=== PATIENT | male | born 1935 | race American Indian/Alaskan Native ===

== ENCOUNTER 2022-01-07 16:49 | Inpatient (IN) | payer MEDICARE, OTHER ==
--- NOTE | 2022-01-07 18:31 | Emergency Department Report ---
HPI - General Chief Complaint: Altered Mental Status Time Seen by Provider: 01/07/22 17:39 - HPI HPI: Room 1 The patient is an 86-year-old male present with chief complaint of altered mental status. Per staff the patient had received his full-time on hemodialysis and was waiting for transportation to go home when the patient became lethargic and inattentive. EMS was called and the patient was transported to the ED. Patient has a previous CVA with left-sided weakness and has garbled speech which is the patient's baseline per staff [facility] Past Medical Hx - Past Medical History Hx Hypertension: Yes Hx Renal Disease: Yes Hx HIV: Yes - Family History Family history: no significant - Social History Smoking Status: Former Smoker - Medications Home Medications: Home Medications Medication Instructions Recorded Confirmed Last Taken Type Alendronate Sodium 70 mg PO QWEEK 08/03/15 10/14/16 2 Days Ago History ~10/12/16 Amlodipine Besylate 10 mg PO QDAY 08/03/15 10/14/16 2 Days Ago History ~10/12/16 Apixaban [Eliquis] 2.5 mg PO BID 08/03/15 10/14/16 2 Days Ago History ~10/12/16 Aspirin EC [Aspirin Enteric Coated 81 mg PO QDAY 08/03/15 10/14/16 2 Days Ago History TAB] ~10/12/16 Bimatoprost [Lumigan 0.01%] 1 drop OU QDAY 08/03/15 10/14/16 2 Days Ago History ~10/12/16 Dutasteride [Avodart] 0.5 mg PO QDAY 08/03/15 10/14/16 2 Days Ago History ~10/12/16 Febuxostat (Nf) [Uloric (Nf)] 40 mg PO QDAY 08/03/15 10/14/16 2 Days Ago History ~10/12/16 Hydrochlorothiazide [HCTZ] 50 mg PO QDAY 08/03/15 10/14/16 2 Days Ago History ~10/12/16 Metoprolol [Lopressor] 50 mg PO BID 08/03/15 10/14/16 2 Days Ago History ~10/12/16 Multivitamin Tab [Multiple Vitamin 1 tab PO QDAY 08/03/15 10/14/16 2 Days Ago History TAB (Theragran)] ~10/12/16 Nitroglycerin [Nitrostat] 0.4 mg SL Q5M PRN 08/03/15 10/14/16 1 Week Ago History ~07/27/15 Psyllium Seed (with Sugar) 1 each PO QDAY 08/03/15 10/14/16 2 Days Ago History [Metamucil] ~10/12/16 Simvastatin 20 mg PO QDAY 08/03/15 10/14/16 2 Days Ago History ~10/12/16 Tamsulosin HCl 0.4 mg PO QPM 08/03/15 10/14/16 2 Days Ago History ~10/12/16 Cholecalciferol Vit D3 [Vitamin D3] 1,000 unit PO BID 08/20/15 10/14/16 2 Days Ago History ~10/12/16 ED Review of Systems ROS: Stated complaint: AMS Other details as noted in HPI Comment: Unobtainable due to pts medical conditions Physical Exam - Physical Exam Vital Signs: Vital Signs 01/07/22 16:49 Temperature 98.1 F Pulse Rate 97 H Respiratory 16 Rate Blood Pressure 100/60 [Left] O2 Sat by Pulse 97 Oximetry Physical Exam: GENERAL: The patient is well-developed well-nourished male lying on stretcher in itially slow to respond but eventually makes eye contact and answers questions. [] HEENT: Normocephalic. Atraumatic. Extraocular motions are intact. Patient has moist mucous membranes. NECK: Supple. Trachea midline CHEST/LUNGS: Clear to auscultation. There is no respiratory distress noted. HEART/CARDIOVASCULAR: Regular. There is no tachycardia. There is no gallop rub or murmur. ABDOMEN: Abdomen is soft, nontender. Patient has normal bowel sounds. There is no abdominal distention. SKIN: There is no rash. There is no edema. There is no diaphoresis. NEURO: The patient is initially asleep but awakens to verbal and tactile stimuli, makes eye contact and attempts to answer questions. The patient is cooperative. The patient has left-sided weakness from previous CVA. The patient has nearly unintelligible speech (patient's baseline per dialysis staff) MUSCULOSKELETAL: There is no evidence of acute injury. ED Course Vital Signs 01/07/22 16:49 Temperature 98.1 F Pulse Rate 97 H Respiratory 16 Rate Blood Pressure 100/60 [Left] O2 Sat by Pulse 97 Oximetry ED Medical Decision Making - Lab Data Result diagrams: 01/07/22 18:30 01/07/22 18:30 - Radiology Data Radiology results: report reviewed (Chest x-ray, CT head), image reviewed (Chest x-ray, CT head) interpreted by me: Chest [id number] lung haziness. No pneumothorax. [address] [address] XRay Report Signed Patient: ANTHONY SYKES MR#: [id number] : 1935 Acct:[id number] Age/Sex: 86 / M ADM Date: 01/07/22 Loc: ED Attending Dr: Ordering Physician: SUSHANT HAMLIN MD Date of Service: 01/07/22 Procedure(s): XR chest 1V ap Accession Number(s): [id number] cc: SUSHANT HAMLIN MD Fluoro Time In Minutes: CHEST 1 VIEW 01/07/2022 5:42 PM INDICATION / CLINICAL INFORMATION: Altered mental status. COMPARISON: None available. FINDINGS: SUPPORT DEVICES: Right Vas-Cath tip overlies distal SVC HEART / MEDIASTINUM: No significant abnormality. LUNGS / PLEURA: Diffuse opacities in bilateral lungs left greater than right with bilateral effusions No pneumothorax. Signer Name: Feliciano Powers MD Signed: 01/07/2022 6:44 PM Workstation Name: [id number] Transcribed By: CW Dictated By: JOE POWERS MD Electronically Authenticated By: JOE POWERS MD Signed Date/Time: 01/07/221843 DD/ [address] [address] Cat Scan Report Signed Patient: ANTHONY SYKES MR#: [id number] : 1935 Acct:[id number] Age/Sex: 86 / M ADM Date: 01/07/22 Loc: ED Attending Dr: Ordering Physician: SUSHANT HAMLIN MD Date of Service: 01/07/22 Procedure(s): CT head/brain wo con Accession Number(s): [id number] cc: SUSHANT HAMLIN MD CT BRAIN: 01/07/2022 INDICATION / CLINICAL INFORMATION: Altered mental status. 86-year-old COMPARISON: None available. FINDINGS: BRAIN/INTRACRANIAL STRUCTURES: Unenhanced CT images of the brain were obtained. There is no evidence of acute abnormality. Extensive ischemic encephalomalacia is present in the right middle cerebral artery territory distribution, consistent with remote ischemic injury. Some cortical gyriform dystrophic calcification is noted. The infarct is associated with Wallerian degeneration of the right cortical spinal tract. Underlying diffuse cerebral atrophy is present. There is no evidence of acute large vessel territory ischemic injury, hemorrhage, or mass. There are no abnormal extra-axial fluid collections. EXTRACRANIAL STRUCTURES: Unremarkable. IMPRESSION: No acute abnormality. Extensive chronic ischemic and age-related changes. All CT scans at this location are performed using dose reduction to ALARA by means of automated exposure control. Signer Name: Quentin Mckenzie MD Signed: 01/07/2022 8:19 PM Workstation Name: [id number] Transcribed By: AO Dictated By: Quentin Mckenzie MD Electronically Authenticated By: Quentin Mckenzie MD Signed Date/Time: 01/07/222018 DD/ 16 TD/TT: Critical care attestation.: If time is entered above; I have spent that time in minutes in the direct care of this critically ill patient, excluding procedure time. ED Disposition Clinical Impression: Altered mental status, Pleural effusion, Suspected 2019 novel coronavirus infection Disposition: ADMITTED INPATIENT Is pt being admited?: Yes Does the pt Need Aspirin: No Condition: Fair Time of Disposition: 20:37 (Care transferred to hospitalist Dr. Erazo (discussed with Dr. Syed))
--- NOTE | 2022-01-07 18:49 | XRay Report ---
CHEST 1 VIEW 01/07/2022 5:42 PM INDICATION / CLINICAL INFORMATION: Altered mental status. COMPARISON: None available. FINDINGS: SUPPORT DEVICES: Right Vas-Cath tip overlies distal SVC HEART / MEDIASTINUM: No significant abnormality. LUNGS / PLEURA: Diffuse opacities in bilateral lungs left greater than right with bilateral effusions No pneumothorax. Signer Name: Feliciano Powers MD Signed: 01/07/2022 6:44 PM Workstation Name: [id number]
[2022-01-07 19:28] LABS: Hematocrit 36.5 % (35.5-45.6); Hemoglobin 11.9 gm/dl (11.8-15.2); Mean Corpuscular HGB Conc 33 % (32-34); Mean Corpuscular Volume 91 fl (84-94); Red Blood Count 4.02 M/mm3 (3.65-5.03); Red Cell Distribution Width 19.1 % (13.2-15.2)
[2022-01-07 19:33] LABS: Platelet Count 78 K/mm3 (140-440)
[2022-01-07 20:00] LABS: Calcium 8.5 mg/dL (8.4-10.2); Creatine Kinase MB 2.1 ng/mL (0.0-4.0)
[2022-01-07 20:10] LABS: Free T4 (Free Thyroxine) 0.28 ng/dL (0.76-1.46)
--- NOTE | 2022-01-07 20:23 | Cat Scan Report ---
CT BRAIN: 01/07/2022 INDICATION / CLINICAL INFORMATION: Altered mental status. 86-year-old COMPARISON: None available. FINDINGS: BRAIN/INTRACRANIAL STRUCTURES: Unenhanced CT images of the brain were obtained. There is no evidence of acute abnormality. Extensive ischemic encephalomalacia is present in the right middle cerebral artery territory distribu tion, consistent with remote ischemic injury. Some cortical gyriform dystrophic calcification is note d. The infarct is associated with Wallerian degeneration of the right cortical spinal tract. Underlying diffuse cerebral atrophy is present. There is no evidence of acute large vessel territory ischemic injury, hemorrhage, or mass. There are no abnormal extra-axial fluid collections. EXTRACRANIAL STRUCTURES: Unremarkable. IMPRESSION: No acute abnormality. Extensive chronic ischemic and age-related changes. All CT scans at this location are performed using dose reduction to ALARA by means of automated expos ure control. Signer Name: Quentin Mckenzie MD Signed: 01/07/2022 8:19 PM Workstation Name: [id number]
[2022-01-07 20:32] LABS: Chol/HDL Ratio 3.77 %
[2022-01-07] MEDS ORDERED: ONDANSETRON 4 MG/2 ML INJ IV PRN ×2 (20:34→21:51)
[2022-01-07] MEDS ORDERED: MORPHINE 2 MG/1 ML INJ IV PRN ×2 (20:34→21:51)
[2022-01-07] MEDS ORDERED: ACETAMINOPHEN 325 MG TAB PO PRN ×2 (20:34→21:51)
[2022-01-07] MEDS ORDERED: AZITHROMYCIN/NS 500 MG/250 ML 500 MG/250 ML BAG IV ONE (20:37)
[2022-01-07] MEDS ORDERED: cefTRIAXone/NS 1 GM/50 ML 1 GM/50 ML BAG IV ONE (20:37)
[2022-01-07 20:40] LABS: Band Neutrophils # (Manual) 0.4 K/mm3; Basophils % (Manual) 0 % (0.0-1.8); Promyelocytes # (Manual) 0.2 K/mm3; Total Cells Counted 100
[2022-01-07 20:41] LABS: Anisocytosis 1+; Hypochromasia 1+; Ovalocytes Few; Platelet Estimate Consistent w Auto; Poikilocytosis 1+; Stomatocytes 1+
[2022-01-07] MEDS ORDERED: ALBUTEROL 2.5 MG/3 ML NEBU IH PRN (21:51)
[2022-01-07] MEDS ORDERED: MORPHINE 4 MG/1 ML INJ IV PRN (21:51)
[2022-01-07] MEDS ORDERED: NITROGLYCERIN 0.4 MG TAB SUBL SL PRN (21:53)
[2022-01-07] MEDS ORDERED: FAMOTIDINE 20 MG TAB PO SCH (22:00)
[2022-01-07] MEDS ORDERED: NON-FORMULARY EACH (Apixaban 2.5 MG Tablet) PO SCH (22:00)
--- NOTE | 2022-01-07 22:01 | History and Physical Report ---
History of Present Illness Date of examination: 01/07/22 Date of admission: 01/07/22 Chief complaint: Altered mental status History of present illness: 86-year-old male with history of CVA and end-stage renal disease on hemodialysis was brought to the emergency room because of altered mental status. Per staff the patient had received his full-time on hemodialysis and was waiting for transportation to go home when the patient became lethargic and inattentive. EM S was called and the patient was transported to the ED. Patient has a previous CVA with left-sided weakness and has garbled speech which is the patient's baseline [facility] In the emergency room initial CT scan shows no acute intracranial abnormality. But patient chest x-ray shows diffuse opacities in the bilateral lungs left greater than right with bilateral effusion. No pneumothorax. Also patient troponin is elevated 0.289 Past History Past Medical History: ESRD, HIV/AIDS, hypertension, renal failure, stroke Past Surgical History: No surgical history Social history: other (Former smoker) Family history: hypertension Medications and Allergies Allergies Allergy/AdvReac Type Severity Reaction Status Date / Time No Known Allergies Allergy Verified 01/07/22 17:27 Home Medications Medication Instructions Recorded Confirmed Last Taken Type Alendronate Sodium 70 mg PO QWEEK 08/03/15 10/14/16 2 Days Ago History ~10/12/16 Amlodipine Besylate 10 mg PO QDAY 08/03/15 10/14/16 2 Days Ago History ~10/12/16 Apixaban [Eliquis] 2.5 mg PO BID 08/03/15 10/14/16 2 Days Ago History ~10/12/16 Aspirin EC [Aspirin Enteric Coated 81 mg PO QDAY 08/03/15 10/14/16 2 Days Ago History TAB] ~10/12/16 Bimatoprost [Lumigan 0.01%] 1 drop OU QDAY 08/03/15 10/14/16 2 Days Ago History ~10/12/16 Dutasteride [Avodart] 0.5 mg PO QDAY 08/03/15 10/14/16 2 Days Ago History ~10/12/16 Febuxostat (Nf) [Uloric (Nf)] 40 mg PO QDAY 08/03/15 10/14/16 2 Days Ago History ~10/12/16 Hydrochlorothiazide [HCTZ] 50 mg PO QDAY 08/03/15 10/14/16 2 Days Ago History ~10/12/16 Metoprolol [Lopressor] 50 mg PO BID 08/03/15 10/14/16 2 Days Ago History ~10/12/16 Multivitamin Tab [Multiple Vitamin 1 tab PO QDAY 08/03/15 10/14/16 2 Days Ago History TAB (Theragran)] ~10/12/16 Nitroglycerin [Nitrostat] 0.4 mg SL Q5M PRN 08/03/15 10/14/16 1 Week Ago History ~07/27/15 Psyllium Seed (with Sugar) 1 each PO QDAY 08/03/15 10/14/16 2 Days Ago History [Metamucil] ~10/12/16 Simvastatin 20 mg PO QDAY 08/03/15 10/14/16 2 Days Ago History ~10/12/16 Tamsulosin HCl 0.4 mg PO QPM 08/03/15 10/14/16 2 Days Ago History ~10/12/16 Cholecalciferol Vit D3 [Vitamin D3] 1,000 unit PO BID 08/20/15 10/14/16 2 Days Ago History ~10/12/16 Active Meds: Active Medications Acetaminophen (Acetaminophen 325 Mg Tab) 650 mg PO Q4H PRN PRN Reason: Pain MILD(1-3)/Fever >100.5/DIAZ Acetaminophen (Acetaminophen 325 Mg Tab) 650 mg PO Q4H PRN PRN Reason: Pain MILD(1-3)/Fever >100.5/DIAZ Albuterol (Albuterol 2.5 Mg/3 Ml Nebu) 2.5 mg IH Q3HRT PRN PRN Reason: Shortness Of Breath Albuterol/Ipratropium (Ipratropium/Albuterol Sulfate 3 Ml Ampul.Neb) 1 ampul IH Q6HRT NICK Amlodipine Besylate (Amlodipine 10 Mg Tab) 10 mg PO QDAY NICK Aspirin (Aspirin Ec 81 Mg Tab) 81 mg PO QDAY NICK Azithromycin (Azithromycin 250 Mg Tab) 500 mg PO QDAY NICK; Protocol Famotidine (Famotidine 20 Mg Tab) 20 mg PO BID NICK Ceftriaxone Sodium (Rocephin/Ns 2 Gm/100 Ml) 2 gm in 100 mls @ 200 mls/hr IV Q24H NICK; Protocol Metoprolol Tartrate (Metoprolol Tartrate 100 Mg Tab) 50 mg PO BID [facility] Miscellaneous Medication (Apixaban) 2.5 mg PO BID [facility] Miscellaneous Medication (Bimatoprost [Lumigan 0.01%]) 1 drop OU QDAY [facility] Miscellaneous Medication (Febuxostat (Nf)) 40 mg PO QDAY [facility] Miscellaneous Medication (Hydrochlorothiazide [Hctz]) 50 mg PO QDAY [facility] Miscellaneous Medication (Simvastatin [Simvastatin]) 20 mg PO QDAY [facility] Morphine Sulfate (Morphine 2 Mg/1 Ml Inj) 2 mg IV Q4H PRN PRN Reason: Pain, Moderate (4-6) Morphine Sulfate (Morphine 2 Mg/1 Ml Inj) 2 mg IV Q4H PRN PRN Reason: Pain, Moderate (4-6) Morphine Sulfate (Morphine 4 Mg/1 Ml Inj) 4 mg IV Q4H PRN PRN Reason: Pain , Severe (7-10) Multivitamins (Multivitamins ,Therapeutic Tab) 1 each PO QDAY [facility] Nitroglycerin (Nitroglycerin 0.4 Mg Tab Subl) 0.4 mg SL Q5M PRN PRN Reason: Chest Pain Ondansetron HCl (Ondansetron 4 Mg/2 Ml Inj) 4 mg IV Q8H PRN PRN Reason: Nausea And Vomiting Ondansetron HCl (Ondansetron 4 Mg/2 Ml Inj) 4 mg IV Q8H PRN PRN Reason: Nausea And Vomiting Sodium Chloride (Sodium Chloride 0.9% 10 Ml Flush Syringe) 10 ml IV BID [facility] Sodium Chloride (Sodium Chloride 0.9% 10 Ml Flush Syringe) 10 ml IV PRN PRN PRN Reason: LINE FLUSH Sodium Chloride (Sodium Chloride 0.9% 10 Ml Flush Syringe) 10 ml IV BID [facility] Sodium Chloride (Sodium Chloride 0.9% 10 Ml Flush Syringe) 10 ml IV PRN PRN PRN Reason: LINE FLUSH Tamsulosin HCl (Tamsulosin 0.4 Mg Cap) 0.4 mg PO QPM [facility] Review of Systems All systems: negative Constitutional: fatigue, malaise, lethargy, other (Altered mental status) Exam - Constitutional Vitals: Temp Pulse Resp BP Pulse Ox 98.2 F 68 18 93/54 98 01/07/22 19:40 01/07/22 19:40 01/07/22 19:40 01/07/22 19:40 01/07/22 19:40 General appearance: Present: no acute distress, well-nourished - EENT Eyes: Present: PERRL ENT: hearing intact, clear oral mucosa - Neck Neck: Present: supple, normal ROM - Respiratory Respiratory effort: normal Respiratory: bilateral: CTA - Cardiovascular Heart Sounds: Present: S1 & S2. Absent: rub, click - Extremities Extremities: pulses symmetrical, No edema Peripheral Pulses: within normal limits - Abdominal General gastrointestinal: Present: soft, non-tender, non-distended, normal bowel sounds Male genitourinary: Present: normal - Integumentary Integumentary: Present: clear, warm, dry - Musculoskeletal Musculoskeletal: gait normal, strength equal bilaterally - Psychiatric Psychiatric: other (Altered mental status) - Neurologic Neurologic: CNII-XII intact, moves all extremities HEART Score - HEART Score Troponin: Troponin T 0.289 ng/mL (0.00-0.029) H* 01/07/22 18:30 Results - Labs CBC & Chem 7: 01/07/22 18:30 01/07/22 18:30 Labs: Laboratory Last Values WBC 9.7 K/mm3 (4.5-11.0) 01/07/22 18:30 RBC 4.02 M/mm3 (3.65-5.03) 01/07/22 18:30 Hgb 11.9 gm/dl (11.8-15.2) 01/07/22 18:30 Hct 36.5 % (35.5-45.6) 01/07/22 18:30 MCV 91 fl (84-94) 01/07/22 18:30 MCH 30 pg (28-32) 01/07/22 18:30 MCHC 33 % (32-34) 01/07/22 18:30 RDW 19.1 % (13.2-15.2) H 01/07/22 18:30 Plt Count 78 K/mm3 (140-440) L 01/07/22 18:30 [place] % (Auto) Pharmaceutical Worker 01/07/22 18:30 Add Manual Diff Complete 01/07/22 18:30 Total Counted 100 01/07/22 18:30 Seg Neuts % (Manual) 63.0 % (40.0-70.0) 01/07/22 18:30 Band Neutrophils % 4.0 % 01/07/22 18:30 Lymphocytes % (Manual) 10.0 % (13.4-35.0) L 01/07/22 18:30 Reactive Lymphs % (Man) 0 % 01/07/22 18:30 Monocytes % (Manual) 16.0 % (0.0-7.3) H 01/07/22 18:30 Eosinophils % (Manual) 3.0 % (0.0-4.3) 01/07/22 18:30 Basophils % (Manual) 0 % (0.0-1.8) 01/07/22 18:30 Metamyelocytes % 2.0 % 01/07/22 18:30 Myelocytes % 0 % 01/07/22 18:30 Promyelocytes % 2.0 % 01/07/22 18:30 Blast Cells % 0 % 01/07/22 18:30 Nucleated RBC % Not Reportable 01/07/22 18:30 Seg Neutrophils # Man 6.1 K/mm3 (1.8-7.7) 01/07/22 18:30 Band Neutrophils # 0.4 K/mm3 01/07/22 18:30 Lymphocytes # (Manual) 1.0 K/mm3 (1.2-5.4) L 01/07/22 18:30 Abs React Lymphs (Man) 0.0 K/mm3 01/07/22 18:30 Monocytes # (Manual) 1.6 K/mm3 (0.0-0.8) H 01/07/22 18:30 Eosinophils # (Manual) 0.3 K/mm3 (0.0-0.4) 01/07/22 18:30 Basophils # (Manual) 0.0 K/mm3 (0.0-0.1) 01/07/22 18:30 Metamyelocytes # 0.2 K/mm3 01/07/22 18:30 Myelocytes # 0.0 K/mm3 01/07/22 18:30 Promyelocytes # 0.2 K/mm3 01/07/22 18:30 Blast Cells # 0.0 K/mm3 01/07/22 18:30 WBC Morphology Not Reportable 01/07/22 18:30 Hypersegmented Neuts Not Reportable 01/07/22 18:30 Hyposegmented Neuts Not Reportable 01/07/22 18:30 Hypogranular Neuts Not Reportable 01/07/22 18:30 Smudge Cells Not Reportable 01/07/22 18:30 Toxic Granulation Not Reportable 01/07/22 18:30 Toxic Vacuolation Not Reportable 01/07/22 18:30 Dohle Bodies Not Reportable 01/07/22 18:30 Pelger-Huet Anomaly Not Reportable 01/07/22 18:30 Donna Rods Not Reportable 01/07/22 18:30 Platelet Estimate Consistent w auto 01/07/22 18:30 Clumped Platelets Not Reportable 01/07/22 18:30 Plt Clumps, EDTA Not Reportable 01/07/22 18:30 Large Platelets Not Reportable 01/07/22 18:30 Giant Platelets Not Reportable 01/07/22 18:30 Platelet Satelliting Not Reportable 01/07/22 18:30 Plt Morphology Comment Not Reportable 01/07/22 18:30 RBC Morphology Not Reportable 01/07/22 18:30 Dimorphic RBCs Not Reportable 01/07/22 18:30 Polychromasia Not Reportable 01/07/22 18:30 Hypochromasia 1+ 01/07/22 18:30 Poikilocytosis 1+ 01/07/22 18:30 Anisocytosis 1+ 01/07/22 18:30 Microcytosis Few 01/07/22 18:30 Macrocytosis Not Reportable 01/07/22 18:30 Spherocytes Not Reportable 01/07/22 18:30 Pappenheimer Bodies Not Reportable 01/07/22 18:30 Sickle Cells Not Reportable 01/07/22 18:30 Target Cells Not Reportable 01/07/22 18:30 Tear Drop Cells Not Reportable 01/07/22 18:30 Ovalocytes Few 01/07/22 18:30 Stomatocytes 1+ 01/07/22 18:30 Helmet Cells Not Reportable 01/07/22 18:30 [place] Bodies Not Reportable 01/07/22 18:30 [place] Rings Not Reportable 01/07/22 18:30 [place] Cells Not Reportable 01/07/22 18:30 Bite Cells Not Reportable 01/07/22 18:30 Crenated Cell Not Reportable 01/07/22 18:30 Elliptocytes Not Reportable 01/07/22 18:30 Acanthocytes (Spur) Not Reportable 01/07/22 18:30 Rouleaux Not Reportable 01/07/22 18:30 Hemoglobin C Crystals Not Reportable 01/07/22 18:30 Schistocytes Not Reportable 01/07/22 18:30 Malaria parasites Not Reportable 01/07/22 18:30 Brian Bodies Not Reportable 01/07/22 18:30 Hem Pathologist Commnt No 01/07/22 18:30 Sodium 140 mmol/L (137-145) 01/07/22 18:30 Potassium 3.3 mmol/L (3.6-5.0) L 01/07/22 18:30 Chloride 98.7 mmol/L (98-107) 01/07/22 18:30 Carbon Dioxide 31 mmol/L (22-30) H 01/07/22 18:30 Anion Gap 14 mmol/L 01/07/22 18:30 BUN 17 mg/dL (9-20) 01/07/22 18:30 Creatinine 2.3 mg/dL (0.8-1.3) H 01/07/22 18:30 Estimated GFR 33 ml/min 01/07/22 18:30 BUN/Creatinine Ratio 7 % 01/07/22 18:30 Glucose 99 mg/dL (75-100) 01/07/22 18:30 Calcium 8.5 mg/dL (8.4-10.2) 01/07/22 18:30 Ammonia 17.0 umol/L (25-60) L 01/07/22 18:30 Total Creatine Kinase 34 units/L (55-170) L 01/07/22 18:30 CK-MB (CK-2) 2.1 ng/mL (0.0-4.0) 01/07/22 18:30 CK-MB (CK-2) Rel Index 6.1 (0-4) H 01/07/22 18:30 Troponin T 0.289 ng/mL (0.00-0.029) H* 01/07/22 18:30 Triglycerides 247 mg/dL (2-149) H 01/07/22 18:30 Cholesterol 83 mg/dL (50-199) 01/07/22 18:30 LDL Cholesterol Direct 9 mg/dL (50-130) L 01/07/22 18:30 HDL Cholesterol 22 mg/dL (40-59) L 01/07/22 18:30 Cholesterol/HDL Ratio 3.77 % 01/07/22 18:30 TSH 100.000 mlU/mL (0.270-4.200) H 01/07/22 18:30 Free T4 0.28 ng/dL (0.76-1.46) L 01/07/22 18:30 - Imaging and Cardiology Chest x-ray: report reviewed CT Scan - head: report reviewed Assessment and Plan VTE prophylaxis?: Chemical Plan of care discussed with patient/family: Yes - Patient Problems (1) Acute metabolic encephalopathy Status: Acute Plan to address problem: Admit the patient to the medical telemetry. Metabolic encephalopathy secondary to chronic kidney disease and pleural effusion and suspected pneumonia. Oxygen by nasal cannula 3 to per minute. DuoNeb by nebulizer every 4 hours. Albuterol via nebulizer every 4 hours as needed. Rocephin 2 g IV daily and Zithromax 500 mg p.o. daily. (2) End-stage renal disease on hemodialysis Status: Acute Plan to address problem: Will consult nephrology for evaluation. Avoid nephrotoxic drug. Renally dose medication. Recheck BMP in the morning (3) Elevated troponin Status: Acute Plan to address problem: Aspirin 81 mg p.o. daily. Simvastatin 20 mg p.o. daily. Nitroglycerin as ne eded. Eliquis 2.5 mg p.o. twice daily. Cardiology evaluation (4) CVA (cerebral vascular accident) Status: Acute Plan to address problem: Aspirin 81 mg p.o. daily. Simvastatin 20 mg p.o. daily. Nitroglycerin as needed. Eliquis 2.5 mg p.o. twice daily. (5) Pleural effusion Status: Acute Plan to address problem: Oxygen by nasal cannula 3 to per minute. DuoNeb by nebulizer every 4 hours. Albuterol via nebulizer every 4 hours as needed. Rocephin 2 g IV daily and Zithromax 500 mg p.o. daily. (6) Suspected 2019 novel coronavirus infection Status: Acute Plan to address problem: Oxygen by nasal cannula 3 to per minute. DuoNeb by nebulizer every 4 hours. Albuterol via nebulizer every 4 hours as needed. Rocephin 2 g IV daily and Zithromax 500 mg p.o. daily. Follow COVID PCR. Consult infectious disease if needed (7) HTN (hypertension) Status: Chronic Plan to address problem: Metoprolol 50 mg p.o. twice daily. Nitroglycerin as needed. Amlodipine 10 mg p.o. daily. Monitor the blood pressure closely (8) DVT prophylaxis Status: Acute Plan to address problem: Eliquis 2.5 mg p.o. twice daily for DVT prophylaxis. Pepcid 20 mg p.o. twice daily for GI prophylaxis. Patient is a full code
[2022-01-08] MEDS ORDERED: IPRATROPIUM/ALBUTEROL SULFATE 3 ML AMPUL.NEB IH SCH (02:00)
[2022-01-08] MEDS: FAMOTIDINE 10 MG TAB PO SCH ×3 (02:03→21:59)
[2022-01-08] MEDS: APIXABAN 2.5 MG TAB PO SCH ×3 (02:03→21:58)
[2022-01-08] MEDS: METOPROLOL TARTRATE 50 MG TAB PO SCH ×2 (02:03→09:50)
--- NOTE | 2022-01-08 04:11 | Consultation ---
History of Present Illness - Reason for Consult Consult date: 01/08/22 end stage renal disease - History of Present Illness 86-year-old male with history of CVA and end-stage renal disease on hemodialysis was brought to the emergency room because of altered mental status. Per staff the patient had received his full-time on hemodialysis and was waiting for transportation to go home when the patient became lethargic and inattentive. EMS was called and the patient was transported to the ED. Patient has a previous CVA with left-sided weakness and has garbled speech which is the patient's baseline per staff at the [facility] In the emergency room initial CT scan shows no acute intracranial abnormality. But patient chest x-ray shows diffuse opacities in the bilateral lungs left gr eater than right with bilateral effusion. No pneumothorax. Also patient troponin is elevated 0.289 Past History Past Medical History: ESRD, HIV/AIDS, hypertension, renal failure, stroke Past Surgical History: No surgical history Social history: other (Former smoker) Family history: hypertension Review of Systems All systems: negative Constitutional: fatigue, malaise, lethargy, other (Altered mental status) Past History Past Medical History: ESRD, HIV/AIDS, hypertension, renal failure, stroke Past Surgical History: No surgical history Social history: other (Former smoker) Family history: hypertension Medications and Allergies Allergies Allergy/AdvReac Type Severity Reaction Status Date / Time No Known Allergies Allergy Verified 01/07/22 17:27 Home Medications Medication Instructions Recorded Confirmed Last Taken Type Alendronate Sodium 70 mg PO QWEEK 08/03/15 01/08/22 2 Days Ago History ~10/12/16 Amlodipine Besylate 10 mg PO QDAY 08/03/15 01/08/22 2 Days Ago History ~10/12/16 Apixaban [Eliquis] 2.5 mg PO BID 08/03/15 01/08/22 2 Days Ago History ~10/12/16 Aspirin EC [Aspirin Enteric Coated 81 mg PO QDAY 08/03/15 01/08/22 2 Days Ago History TAB] ~10/12/16 Bimatoprost [Lumigan 0.01%] 1 drop OU QDAY 08/03/15 01/08/22 2 Days Ago History ~10/12/16 Dutasteride [Avodart] 0.5 mg PO QDAY 08/03/15 01/08/22 2 Days Ago History ~10/12/16 Febuxostat (Nf) [Uloric (Nf)] 40 mg PO QDAY 08/03/15 01/08/22 2 Days Ago History ~10/12/16 Hydrochlorothiazide [HCTZ] 50 mg PO QDAY 08/03/15 01/08/22 2 Days Ago History ~10/12/16 Metoprolol [Lopressor] 50 mg PO BID 08/03/15 01/08/22 2 Days Ago History ~10/12/16 Multivitamin Tab [Multiple Vitamin 1 tab PO QDAY 08/03/15 01/08/22 2 Days Ago History TAB (Theragran)] ~10/12/16 Nitroglycerin [Nitrostat] 0.4 mg SL Q5M PRN 08/03/15 01/08/22 1 Week Ago History ~07/27/15 Psyllium Seed (with Sugar) 1 each PO QDAY 08/03/15 01/08/22 2 Days Ago History [Metamucil] ~10/12/16 Simvastatin 20 mg PO QDAY 08/03/15 01/08/22 2 Days Ago History ~10/12/16 Tamsulosin HCl 0.4 mg PO QPM 08/03/15 01/08/22 2 Days Ago History ~10/12/16 Cholecalciferol Vit D3 [Vitamin D3] 1,000 unit PO BID 08/20/15 01/08/22 2 Days Ago History ~10/12/16 Active Meds: Active Medications Acetaminophen (Acetaminophen 325 Mg Tab) 650 mg PO Q4H PRN PRN Reason: Pain MILD(1-3)/Fever >100.5/DIAZ Albuterol (Albuterol 2.5 Mg/3 Ml Nebu) 2.5 mg IH Q3HRT PRN PRN Reason: Shortness Of Breath Amlodipine Besylate (Amlodipine 10 Mg Tab) 10 mg PO QDAY [facility] Apixaban (Apixaban 2.5 Mg Tab) 2.5 mg PO BID [facility] Last Admin: 01/08/22 02:03 Dose: Not Given Aspirin (Aspirin Ec 81 Mg Tab) 81 mg PO QDAY [facility] Azithromycin (Azithromycin 250 Mg Tab) 500 mg PO QDAY [facility]; Protocol Famotidine (Famotidine 10 Mg Tab) 10 mg PO BID [facility] Last Admin: 01/08/22 02:03 Dose: Not Given Hydrochlorothiazide (Hydrochlorothiazide 25 Mg Tab) 50 mg PO QDAY [facility] Ceftriaxone Sodium (Rocephin/Ns 2 Gm/100 Ml) 2 gm in 100 mls @ 200 mls/hr IV Q24H [facility]; Protocol Latanoprost (Latanoprost 0.005% Ophth Soln 2.5 Ml) 1 drops OU QPM [facility] Metoprolol Tartrate (Metoprolol Tartrate 50 Mg Tab) 50 mg PO BID [facility] Last Admin: 01/08/22 02:03 Dose: Not Given Miscellaneous Medication (Febuxostat (Nf)) 40 mg PO QDAY [facility] Morphine Sulfate (Morphine 2 Mg/1 Ml Inj) 2 mg IV Q4H PRN PRN Reason: Pain, Moderate (4-6) Morphine Sulfate (Morphine 4 Mg/1 Ml Inj) 4 mg IV Q4H PRN PRN Reason: Pain , Severe (7-10) Multivitamins (Multivitamins ,Therapeutic Tab) 1 each PO QDAY [facility] Nitroglycerin (Nitroglycerin 0.4 Mg Tab Subl) 0.4 mg SL Q5M PRN PRN Reason: Chest Pain Ondansetron HCl (Ondansetron 4 Mg/2 Ml Inj) 4 mg IV Q8H PRN PRN Reason: Nausea And Vomiting Pravastatin Sodium (Pravastatin 40 Mg Tab) 40 mg PO QDAY [facility] Sodium Chloride (Sodium Chloride 0.9% 10 Ml Flush Syringe) 10 ml IV BID [facility] Last Admin: 01/07/22 23:05 Dose: 10 ml Sodium Chloride (Sodium Chloride 0.9% 10 Ml Flush Syringe) 10 ml IV PRN PRN PRN Reason: LINE FLUSH Tamsulosin HCl (Tamsulosin 0.4 Mg Cap) 0.4 mg PO QPM [facility] Exam - Vital Signs Vital signs: Vital Signs Temp Pulse Resp BP Pulse Ox 98.1 F 97 H 16 100/60 97 01/07/22 16:49 01/07/22 16:49 01/07/22 16:49 01/07/22 16:49 01/07/22 16:49 - Physical Exam Narrative exam: General appearance: Present: no acute distress, well-nourished - EENT Eyes: Present: PERRL ENT: hearing intact, clear oral mucosa - Neck Neck: Present: supple, normal ROM - Respiratory Respiratory effort: normal Respiratory: bilateral: CTA - Cardiovascular Heart Sounds: Present: S1 & S2. Absent: rub, click - Extremities Extremities: pulses symmetrical, No edema Peripheral Pulses: within normal limits - Abdominal General gastrointestinal: Present: soft, non-tender, non-distended, normal bowel sounds Male genitourinary: Present: normal - Integumentary Integumentary: Present: clear, warm, dry - Musculoskeletal Musculoskeletal: gait normal, strength equal bilaterally - Psychiatric Psychiatric: other (Altered mental status) - Neurologic Neurologic: CNII-XII intact, moves all extremities Results - Lab Results 01/07/22 18:30 01/07/22 18:30 Most recent lab results Calcium 8.5 mg/dL (8.4-10.2) 01/07/22 18:30 Assessment and Plan Impression: * ESRD * AMS * PNA * HTN * HTN * Covid PUI Plan: * HD q MWF * no emergent indication for MA[employer]T at this time * strict i/os and lytes prn * Renal diet * viral and infectious workup and treatment per primary team * uf as tolerated with hd
[2022-01-08 07:52] LABS: Hematocrit 34.9 % (35.5-45.6); Mean Corpuscular HGB Conc 32 % (32-34); Mean Corpuscular Volume 91 fl (84-94); Red Blood Count 3.83 M/mm3 (3.65-5.03); Red Cell Distribution Width 19.5 % (13.2-15.2)
[2022-01-08 07:59] LABS: Platelet Count 82 K/mm3 (140-440)
[2022-01-08 08:01] LABS: Calcium 8.6 mg/dL (8.4-10.2)
--- NOTE | 2022-01-08 09:19 | Consultation ---
History of Present Illness Consult date: 01/08/22 Consult reason: abnormal cardiac enzymes History of present illness: 86-year-old male with history of stroke and severe renal disease on dialysis HIV hypertension paroxysmal atrial fibrillation was brought in here because of altered mental status which happened after the patient received dialysis and was transported back to home. His initial CTA in the emergency room was negative for any acute stroke In the emergency room he was found to have mildly elevated troponin 0.289 with bilateral pleural effusion on chest x-ray with diffuse opacities. He denies any active chest pain shortness of breath or orthopnea Past History Past Medical History: ESRD, HIV/AIDS, hypertension, renal failure, stroke Past Surgical History: No surgical history Social history: other (Former smoker) Family history: hypertension Medications and Allergies Allergies Allergy/AdvReac Type Severity Reaction Status Date / Time No Known Allergies Allergy Verified 01/07/22 17:27 Home Medications Medication Instructions Recorded Confirmed Last Taken Type Alendronate Sodium 70 mg PO QWEEK 08/03/15 01/08/22 2 Days Ago History ~10/12/16 Amlodipine Besylate 10 mg PO QDAY 08/03/15 01/08/22 2 Days Ago History ~10/12/16 Apixaban [Eliquis] 2.5 mg PO BID 08/03/15 01/08/22 2 Days Ago History ~10/12/16 Aspirin EC [Aspirin Enteric Coated 81 mg PO QDAY 08/03/15 01/08/22 2 Days Ago History TAB] ~10/12/16 Bimatoprost [Lumigan 0.01%] 1 drop OU QDAY 08/03/15 01/08/22 2 Days Ago History ~10/12/16 Dutasteride [Avodart] 0.5 mg PO QDAY 08/03/15 01/08/22 2 Days Ago History ~10/12/16 Febuxostat (Nf) [Uloric (Nf)] 40 mg PO QDAY 08/03/15 01/08/22 2 Days Ago History ~10/12/16 Hydrochlorothiazide [HCTZ] 50 mg PO QDAY 08/03/15 01/08/22 2 Days Ago History ~10/12/16 Metoprolol [Lopressor] 50 mg PO BID 08/03/15 01/08/22 2 Days Ago History ~10/12/16 Multivitamin Tab [Multiple Vitamin 1 tab PO QDAY 08/03/15 01/08/22 2 Days Ago History TAB (Theragran)] ~10/12/16 Nitroglycerin [Nitrostat] 0.4 mg SL Q5M PRN 08/03/15 01/08/22 1 Week Ago History ~07/27/15 Psyllium Seed (with Sugar) 1 each PO QDAY 08/03/15 01/08/22 2 Days Ago History [Metamucil] ~10/12/16 Simvastatin 20 mg PO QDAY 08/03/15 01/08/22 2 Days Ago History ~10/12/16 Tamsulosin HCl 0.4 mg PO QPM 08/03/15 01/08/22 2 Days Ago History ~10/12/16 Cholecalciferol Vit D3 [Vitamin D3] 1,000 unit PO BID 08/20/15 01/08/22 2 Days Ago History ~10/12/16 Active Meds: Active Medications Acetaminophen (Acetaminophen 325 Mg Tab) 650 mg PO Q4H PRN PRN Reason: Pain MILD(1-3)/Fever >100.5/DIAZ Albuterol (Albuterol 2.5 Mg/3 Ml Nebu) 2.5 mg IH Q3HRT PRN PRN Reason: Shortness Of Breath Amlodipine Besylate (Amlodipine 10 Mg Tab) 10 mg PO QDAY [facility] Apixaban (Apixaban 2.5 Mg Tab) 2.5 mg PO BID [facility] Last Admin: 01/08/22 02:03 Dose: Not Given Aspirin (Aspirin Ec 81 Mg Tab) 81 mg PO QDAY [facility] Azithromycin (Azithromycin 250 Mg Tab) 500 mg PO QDAY [facility]; Protocol Famotidine (Famotidine 10 Mg Tab) 10 mg PO BID [facility] Last Admin: 01/08/22 02:03 Dose: Not Given Hydrochlorothiazide (Hydrochlorothiazide 25 Mg Tab) 50 mg PO QDAY [facility] Ceftriaxone Sodium (Rocephin/Ns 2 Gm/100 Ml) 2 gm in 100 mls @ 200 mls/hr IV Q24H [facility]; Protocol Potassium Chloride (Kcl 10meq/100ml) 10 meq in 100 mls @ 100 mls/hr IV Q1H [facility] Stop: 01/08/22 13:59 Lactated Ringer's (Lactated Ringers) 1,000 mls @ 500 mls/hr IV BOLUS ONE Stop: 01/08/22 11:29 Potassium Chloride (Kcl 10meq/100ml) 10 meq in 100 mls @ 100 mls/hr IV Q1H [facility] Stop: 01/08/22 19:59 Latanoprost (Latanoprost 0.005% Ophth Soln 2.5 Ml) 1 drops OU QPM [facility] Levothyroxine Sodium (Levothyroxine 100 Mcg Inj) 100 mcg IV DAILY [facility] Metoprolol Tartrate (Metoprolol Tartrate 50 Mg Tab) 50 mg PO BID [facility] Last Admin: 01/08/22 02:03 Dose: Not Given Miscellaneous Medication (Febuxostat (Nf)) 40 mg PO QDAY [facility] Morphine Sulfate (Morphine 2 Mg/1 Ml Inj) 2 mg IV Q4H PRN PRN Reason: Pain, Moderate (4-6) Morphine Sulfate (Morphine 4 Mg/1 Ml Inj) 4 mg IV Q4H PRN PRN Reason: Pain , Severe (7-10) Multivitamins (Multivitamins ,Therapeutic Tab) 1 each PO QDAY [facility] Nitroglycerin (Nitroglycerin 0.4 Mg Tab Subl) 0.4 mg SL Q5M PRN PRN Reason: Chest Pain Ondansetron HCl (Ondansetron 4 Mg/2 Ml Inj) 4 mg IV Q8H PRN PRN Reason: Nausea And Vomiting Pravastatin Sodium (Pravastatin 40 Mg Tab) 40 mg PO QDAY [facility] Sodium Chloride (Sodium Chloride 0.9% 10 Ml Flush Syringe) 10 ml IV BID [facility] Last Admin: 01/07/22 23:05 Dose: 10 ml Sodium Chloride (Sodium Chloride 0.9% 10 Ml Flush Syringe) 10 ml IV PRN PRN PRN Reason: LINE FLUSH Tamsulosin HCl (Tamsulosin 0.4 Mg Cap) 0.4 mg PO QPM [facility] Review of Systems Constitutional: fatigue, malaise, no fever Cardiovascular: no chest pain, no orthopnea, no palpitations Respiratory: no cough Gastrointestinal: no nausea, no vomiting Musculoskeletal: no neck pain Integumentary: no rash Neurological: no head injury Physical Examination Vital Signs Temp Pulse Resp BP Pulse Ox 98.1 F 97 H 16 100/60 97 01/07/22 16:49 01/07/22 16:49 01/07/22 16:49 01/07/22 16:49 01/07/22 16:49 General appearance: no acute distress HEENT: Positive: Normocephaly Neck: Negative: JVD/HJR Cardiac: Positive: Reg Rate and Rhythm (PACs noted), S1/S2 Lungs: Positive: Decreased Breath Sounds. Negative: No Wheeze, Rales, Rhonchi Neuro: Positive: Grossly Intact Extremities: Absent: edema Results 01/08/22 07:24 01/08/22 07:24 Cardiac Enzymes 01/07/22 Range/Units 18:30 CK-MB (CK-2) 2.1 (0.0-4.0) ng/mL Lipids 01/07/22 Range/Units 18:30 Triglycerides 247 H (2-149) mg/dL Cholesterol 83 (50-199) mg/dL HDL Cholesterol 22 L (40-59) mg/dL Cholesterol/HDL Ratio 3.77 % CBC 01/07/22 01/08/22 Range/Units 18:30 07:24 WBC 9.7 8.0 (4.5-11.0) K/mm3 RBC 4.02 3.83 (3.65-5.03) M/mm3 Hgb 11.9 11.0 L (11.8-15.2) gm/dl Hct 36.5 34.9 L (35.5-45.6) % Plt Count 78 L 82 L (140-440) K/mm3 Comprehensive Metabolic Panel 01/07/22 01/08/22 Range/Units 18:30 07:24 Sodium 140 142 (137-145) mmol/L Potassium 3.3 L 3.3 L (3.6-5.0) mmol/L Chloride 98.7 100.2 (98-107) mmol/L Carbon Dioxide 31 H 31 H (22-30) mmol/L BUN 17 24 H (9-20) mg/dL Creatinine 2.3 H 2.9 H (0.8-1.3) mg/dL Glucose 99 86 (75-100) mg/dL Calcium 8.5 8.6 (8.4-10.2) mg/dL EKG interpretations - Telemetry EKG Rhythm: Sinus Rhythm (With PACs) - EKG Sinus rhythms and dysrhythmias: sinus rhythm (Possible sinus rhythm with PACs) Assessment and Plan - Patient Problems (1) Elevated troponin Current Visit: No Status: Acute Plan to address problem: Patient elevated troponin likely from his end-stage renal disease, altered mental status, lactic acidosis. No evidence of ACS on EKG. Continue to trend troponins x2 We will check BNP to make sure there is no competent of congestive heart failure for his x-ray finding Will obtain echocardiogram to assess the ejection fraction and wall motion abnormalities. (2) Atrial fibrillation Current Visit: No Status: Chronic Qualifiers: Atrial fibrillation type: paroxysmal Qualified Code(s): I48.0 - Paroxysmal atrial fibrillation Plan to address problem: Patient currently appears to be in sinus rhythm with PACs. Continue the current management continue apixaban if no contraindications. (3) HTN (hypertension) Current Visit: No Status: Chronic
[2022-01-08] MEDS ORDERED: LACTATED RINGERS 1,000 ML IV ONE (09:30)
[2022-01-08] MEDS: cefTRIAXone/NS 2 GM/100 ML 2 GM/100 ML BAG IV SCH (09:49)
[2022-01-08] MEDS: POTASSIUM CHLORIDE 10 MEQ 10 MEQ/100 ML BAG IV SCH ×5 (09:49→18:45)
[2022-01-08] MEDS: AZITHROMYCIN 250 MG TAB PO SCH (09:50)
[2022-01-08] MEDS: PRAVASTATIN 40 MG TAB PO SCH (09:50)
[2022-01-08] MEDS: MULTIVITAMINS ,THERAPEUTIC TAB PO SCH (09:50)
[2022-01-08] MEDS: amLODIPine 10 MG TAB PO SCH (09:50)
[2022-01-08] MEDS: ASPIRIN EC 81 MG TAB PO SCH (09:50)
[2022-01-08] MEDS: LEVOTHYROXINE 100 MCG INJ IV SCH (09:51)
[2022-01-08] MEDS ORDERED: hydroCHLOROthiazide 25 MG TAB PO SCH (10:00)
[2022-01-08] MEDS ORDERED: FEBUXOSTAT 40 MG PO SCH (10:00)
[2022-01-08] MEDS ORDERED: NON-FORMULARY EACH (Simvastatin [Simvastatin] 20 MG Tablet) PO SCH (10:00)
[2022-01-08] MEDS ORDERED: NON-FORMULARY EACH (Bimatoprost [Lumigan 0.01%] 5 ML Drops) OU SCH (10:00)
[2022-01-08] MEDS ORDERED: HYDROCHLOROTHIAZIDE 50 MG PO SCH (10:00)
[2022-01-08 10:40] LABS: Band Neutrophils # (Manual) 0.1 K/mm3; Hypochromasia 1+; Myelocytes # (Manual) 0.1 K/mm3; Platelet Estimate Consistent w Auto; Stomatocytes 3+; Total Cells Counted 100
[2022-01-08] MEDS ORDERED: SODIUM CHLORIDE 0.9% 1000 ML 1,000 ML IV ONE ×2 (17:00→17:57)
--- NOTE | 2022-01-08 18:15 | Progress Note ---
Assessment and Plan Assessment and plan: #Acute metabolic encephalopathy #Lactic acidosis #Possible community-acquired pneumonia secondary to gram-negative rods versus atypical bacteria Unremarkable CT head noncontrast Possibly secondary to suspected pneumonia secondary to gram-negative rods versus atypical bacteria Continue Rocephin 2 g daily and p.o. azithromycin 5 mg daily Status post IV fluid resuscitation. Continuing to trend lactic acid until unremarkable. Pending blood cultures Continue to monitor. #ESRD on hemodialysis -Access: Permacath in upper right chest -Outpatient schedule: Limited further -HD center: Unknown -Nephrology consulted; appreciate recs. -Renally dose medications and avoid nephrotoxic drugs. Renal diet. 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 Continue to trend troponins. 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 status. Only utilize PEG tube for po meds and nutrition. #Advanced care planning -Disease education conducted, care plan discussed, diagnoses discussed, prognosis discussed, and patient acknowledges understanding with care plan -Time: +30 min Disposition Plan: Continue medical management Total Time Spent with Patient (Minutes): 40 minutes History Interval history: No acute events overnight. Hospitalist Physical - Constitutional Vitals: Temp Pulse Resp BP Pulse Ox 97.9 F 71 18 94/56 97 01/08/22 05:45 01/08/22 05:45 01/08/22 05:45 01/08/22 05:45 01/08/22 14:00 General appearance: Present: no acute distress, other (Cognitive deficits secondary to recent hemorrhagic CVA) - EENT Eyes: Present: PERRL, EOM intact ENT: hearing intact, clear oral mucosa, dentition normal - Neck Neck: Present: supple, normal ROM, other (Permacath in upper right chest) - Respiratory Respiratory effort: normal Respiratory: bilateral: CTA - Cardiovascular Rhythm: regular Heart Sounds: Present: S1 & S2 - Extremities Extremities: no ischemia, pulses intact, pulses symmetrical, No edema, normal temperature, normal color Peripheral Pulses: within normal limits - Abdominal General gastrointestinal: soft, non-tender, non-distended, normal bowel sounds, other (PEG tube in place) - Integumentary Integumentary: Present: clear, warm, dry - Psychiatric Psychiatric: cooperative - Neurologic Neurologic: CNII-XII intact, moves all extremities, other (Alert and oriented x2) - Allied Health Allied health notes reviewed: nursing HEART Score - HEART Score Troponin: Troponin T 0.289 ng/mL (0.00-0.029) H* 01/07/22 18:30 Results - Labs CBC & Chem 7: 01/08/22 07:24 01/08/22 07:24 Labs: Laboratory Last Values WBC 8.0 K/mm3 (4.5-11.0) 01/08/22 07:24 RBC 3.83 M/mm3 (3.65-5.03) 01/08/22 07:24 Hgb 11.0 gm/dl (11.8-15.2) L 01/08/22 07:24 Hct 34.9 % (35.5-45.6) L 01/08/22 07:24 MCV 91 fl (84-94) 01/08/22 07:24 MCH 29 pg (28-32) 01/08/22 07:24 MCHC 32 % (32-34) 01/08/22 07:24 RDW 19.5 % (13.2-15.2) H 01/08/22 07:24 Plt Count 82 K/mm3 (140-440) L 01/08/22 07:24 [place] % (Auto) Director Supply Chain 01/08/22 07:24 Add Manual Diff Complete 01/08/22 07:24 Total Counted 100 01/08/22 07:24 Seg Neuts % (Manual) 72.0 % (40.0-70.0) H 01/08/22 07:24 Band Neutrophils % 1.0 % 01/08/22 07:24 Lymphocytes % (Manual) 12.0 % (13.4-35.0) L 01/08/22 07:24 Reactive Lymphs % (Man) 1.0 % 01/08/22 07:24 Monocytes % (Manual) 9.0 % (0.0-7.3) H 01/08/22 07:24 Eosinophils % (Manual) 2.0 % (0.0-4.3) 01/08/22 07:24 Basophils % (Manual) 1.0 % (0.0-1.8) 01/08/22 07:24 Metamyelocytes % 1.0 % 01/08/22 07:24 Myelocytes % 1.0 % 01/08/22 07:24 Promyelocytes % 0 % 01/08/22 07:24 Blast Cells % 0 % 01/08/22 07:24 Nucleated RBC % Not Reportable 01/08/22 07:24 Seg Neutrophils # Man 5.8 K/mm3 (1.8-7.7) 01/08/22 07:24 Band Neutrophils # 0.1 K/mm3 01/08/22 07:24 Lymphocytes # (Manual) 1.0 K/mm3 (1.2-5.4) L 01/08/22 07:24 Abs React Lymphs (Man) 0.1 K/mm3 01/08/22 07:24 Monocytes # (Manual) 0.7 K/mm3 (0.0-0.8) 01/08/22 07:24 Eosinophils # (Manual) 0.2 K/mm3 (0.0-0.4) 01/08/22 07:24 Basophils # (Manual) 0.1 K/mm3 (0.0-0.1) 01/08/22 07:24 Metamyelocytes # 0.1 K/mm3 01/08/22 07:24 Myelocytes # 0.1 K/mm3 01/08/22 07:24 Promyelocytes # 0.0 K/mm3 01/08/22 07:24 Blast Cells # 0.0 K/mm3 01/08/22 07:24 WBC Morphology Not Reportable 01/08/22 07:24 Hypersegmented Neuts Not Reportable 01/08/22 07:24 Hyposegmented Neuts Not Reportable 01/08/22 07:24 Hypogranular Neuts Not Reportable 01/08/22 07:24 Smudge Cells Not Reportable 01/08/22 07:24 Toxic Granulation Not Reportable 01/08/22 07:24 Toxic Vacuolation Not Reportable 01/08/22 07:24 Dohle Bodies Not Reportable 01/08/22 07:24 Pelger-Huet Anomaly Not Reportable 01/08/22 07:24 Donna Rods Not Reportable 01/08/22 07:24 Platelet Estimate Consistent w auto 01/08/22 07:24 Clumped Platelets Not Reportable 01/08/22 07:24 Plt Clumps, EDTA Not Reportable 01/08/22 07:24 Large Platelets Not Reportable 01/08/22 07:24 Giant Platelets Not Reportable 01/08/22 07:24 Platelet Satelliting Not Reportable 01/08/22 07:24 Plt Morphology Comment Not Reportable 01/08/22 07:24 RBC Morphology Not Reportable 01/08/22 07:24 Dimorphic RBCs Not Reportable 01/08/22 07:24 Polychromasia Not Reportable 01/08/22 07:24 Hypochromasia 1+ 01/08/22 07:24 Poikilocytosis Not Reportable 01/08/22 07:24 Anisocytosis Not Reportable 01/08/22 07:24 Microcytosis Not Reportable 01/08/22 07:24 Macrocytosis Not Reportable 01/08/22 07:24 Spherocytes Not Reportable 01/08/22 07:24 Pappenheimer Bodies Not Reportable 01/08/22 07:24 Sickle Cells Not Reportable 01/08/22 07:24 Target Cells Not Reportable 01/08/22 07:24 Tear Drop Cells Not Reportable 01/08/22 07:24 Ovalocytes Not Reportable 01/08/22 07:24 Stomatocytes 3+ 01/08/22 07:24 Helmet Cells Not Reportable 01/08/22 07:24 [place] Bodies Not Reportable 01/08/22 07:24 [place] Rings Not Reportable 01/08/22 07:24 Wilbert Cells Not Reportable 01/08/22 07:24 Bite Cells Not Reportable 01/08/22 07:24 Crenated Cell Not Reportable 01/08/22 07:24 Elliptocytes Not Reportable 01/08/22 07:24 Acanthocytes (Spur) Not Reportable 01/08/22 07:24 Rouleaux Not Reportable 01/08/22 07:24 Hemoglobin C Crystals Not Reportable 01/08/22 07:24 Schistocytes Not Reportable 01/08/22 07:24 Malaria parasites Not Reportable 01/08/22 07:24 Brian Bodies Not Reportable 01/08/22 07:24 Hem Pathologist Commnt No 01/08/22 07:24 Sodium 142 mmol/L (137-145) 01/08/22 07:24 Potassium 3.3 mmol/L (3.6-5.0) L 01/08/22 07:24 Chloride 100.2 mmol/L (98-107) 01/08/22 07:24 Carbon Dioxide 31 mmol/L (22-30) H 01/08/22 07:24 Anion Gap 14 mmol/L 01/08/22 07:24 BUN 24 mg/dL (9-20) H 01/08/22 07:24 Creatinine 2.9 mg/dL (0.8-1.3) H 01/08/22 07:24 Estimated GFR 25 ml/min 01/08/22 07:24 BUN/Creatinine Ratio 8 % 01/08/22 07:24 Glucose 86 mg/dL (75-100) 01/08/22 07:24 POC Glucose 109 mg/dL (70-105) H 01/08/22 12:00 Lactic Acid 3.60 mmol/L (0.7-2.0) H* 01/08/22 14:49 Calcium 8.6 mg/dL (8.4-10.2) 01/08/22 07:24 Ammonia 17.0 umol/L (25-60) L 01/07/22 18:30 Total Creatine Kinase 34 units/L (55-170) L 01/07/22 18:30 CK-MB (CK-2) 2.1 ng/mL (0.0-4.0) 01/07/22 18:30 CK-MB (CK-2) Rel Index 6.1 (0-4) H 01/07/22 18:30 Troponin T 0.289 ng/mL (0.00-0.029) H* 01/07/22 18:30 NT-Pro-B Natriuret Pep 1790 pg/mL (0-900) H 01/08/22 13:30 Triglycerides 247 mg/dL (2-149) H 01/07/22 18:30 Cholesterol 83 mg/dL (50-199) 01/07/22 18:30 LDL Cholesterol Direct 9 mg/dL (50-130) L 01/07/22 18:30 HDL Cholesterol 22 mg/dL (40-59) L 01/07/22 18:30 Cholesterol/HDL Ratio 3.77 % 01/07/22 18:30 TSH 100.000 mlU/mL (0.270-4.200) H 01/07/22 18:30 Free T4 0.28 ng/dL (0.76-1.46) L 01/07/22 18:30 SARS-CoV-2 (PCR) Negative (Negative) 01/08/22 10:30 Microbiology: Microbiology 01/07/22 21:18 Peripheral/Venous Blood Culture - Preliminary Culture in Progress 01/07/22 21:18 Peripheral/Venous Blood Culture - Preliminary Culture in Progress Bryan/IV: Voiding Method Indwelling Catheter Active Medications - Current Medications Current Medications: Generic Name Dose Route Start Last Admin Trade Name Freq PRN Reason Stop Dose Admin Acetaminophen 650 mg 01/07/22 21:51 Acetaminophen 325 Mg Tab PO Q4H PRN Pain MILD(1-3)/Fever >100.5/DIAZ Albuterol 2.5 mg 01/07/22 21:51 Albuterol 2.5 Mg/3 Ml Nebu IH Q3HRT PRN Shortness Of Breath Amlodipine Besylate 10 mg 01/08/22 10:00 01/08/22 09:50 Amlodipine 10 Mg Tab PO 10 mg QDAY NICK Administration Apixaban 2.5 mg 01/07/22 22:00 01/08/22 09:50 Apixaban 2.5 Mg Tab PO 2.5 mg BID NICK Administration Aspirin 81 mg 01/08/22 10:00 01/08/22 09:50 Aspirin Ec 81 Mg Tab PO 81 mg QDAY NICK Administration Azithromycin 500 mg 01/08/22 10:00 01/08/22 09:50 Azithromycin 250 Mg Tab PO 500 mg QDAY NICK Administration Protocol Famotidine 10 mg 01/07/22 22:00 01/08/22 09:50 Famotidine 10 Mg Tab PO 10 mg BID NICK Administration Ceftriaxone Sodium 2 gm in 100 mls @ 200 mls/hr 01/08/22 10:00 01/08/22 09:49 Rocephin/Ns 2 Gm/100 Ml IV 200 mls/hr Q24H NICK Administration Protocol Potassium Chloride 10 meq in 100 mls @ 100 mls/hr 01/08/22 16:00 Kcl 10meq/100ml IV 01/08/22 19:59 Q1H NICK Sodium Chloride 1,000 mls @ 500 mls/hr 01/08/22 17:00 Nacl 0.9% 1000 Ml IV 01/08/22 18:59 BOLUS ONE Sodium Chloride 1,000 mls @ 500 mls/hr 01/08/22 17:57 Nacl 0.9% 1000 Ml IV 01/08/22 19:56 BOLUS ONE Latanoprost 1 drops 01/08/22 18:00 Latanoprost 0.005% Ophth Soln 2.5 Ml OU QPM [facility] Levothyroxine Sodium 100 mcg 01/08/22 10:00 01/08/22 09:51 Levothyroxine 100 Mcg Inj IV 100 mcg DAILY NICK Administration Miscellaneous Medication 40 mg 01/08/22 10:00 Febuxostat (Nf) PO QDAY [facility] Morphine Sulfate 2 mg 01/07/22 21:51 Morphine 2 Mg/1 Ml Inj IV Q4H PRN Pain, Moderate (4-6) Morphine Sulfate 4 mg 01/07/22 21:51 Morphine 4 Mg/1 Ml Inj IV Q4H PRN Pain , Severe (7-10) Multivitamins 1 each 01/08/22 10:00 01/08/22 09:50 Multivitamins ,Therapeutic Tab PO 1 each QDAY [facility] Administration Nitroglycerin 0.4 mg 01/07/22 21:53 Nitroglycerin 0.4 Mg Tab Subl SL Q5M PRN Chest Pain Ondansetron HCl 4 mg 01/07/22 21:51 Ondansetron 4 Mg/2 Ml Inj IV Q8H PRN Nausea And Vomiting Pravastatin Sodium 40 mg 01/08/22 10:00 01/08/22 09:50 Pravastatin 40 Mg Tab PO 40 mg QDAY NICK Administration Sodium Chloride 10 ml 01/07/22 22:00 01/08/22 09:50 Sodium Chloride 0.9% 10 Ml Flush Syringe IV 10 ml BID NICK Administration Sodium Chloride 10 ml 01/07/22 21:51 Sodium Chloride 0.9% 10 Ml Flush Syringe IV PRN PRN LINE FLUSH Tamsulosin HCl 0.4 mg 01/08/22 18:00 Tamsulosin 0.4 Mg Cap PO QPM [facility]
[2022-01-08] MEDS: TAMSULOSIN 0.4 MG CAP PO SCH (18:46)
[2022-01-09] MEDS: LATANOPROST 0.005% OPHTH SOLN 2.5 ML OU SCH ×2 (07:58→17:31)
[2022-01-09] MEDS ORDERED: SODIUM CHLORIDE 0.9% 1000 ML 1,000 ML IV ONE (08:06)
[2022-01-09 08:09] LABS: Bilirubin,Urine Negative (Negative); Color,Urine Amber (Yellow)
[2022-01-09 08:10] LABS: Blood,Urine Moderate (Negative); Protein,Urine >2000 mg dL mg/dL (Negative); Urobilinogen,Urine < 2.0 mg/dL (<2.0)
[2022-01-09 08:32] LABS: Hematocrit 32.3 % (35.5-45.6); Hemoglobin 10.6 gm/dl (11.8-15.2); Mean Corpuscular HGB Conc 33 % (32-34); Mean Corpuscular Volume 91 fl (84-94); Red Blood Count 3.56 M/mm3 (3.65-5.03); Red Cell Distribution Width 19.6 % (13.2-15.2)
[2022-01-09 08:33] LABS: Calcium 8.3 mg/dL (8.4-10.2)
[2022-01-09 08:35] LABS: Platelet Count 84 K/mm3 (140-440)
[2022-01-09] MEDS: cefTRIAXone/NS 2 GM/100 ML 2 GM/100 ML BAG IV SCH (09:02)
[2022-01-09] MEDS: AZITHROMYCIN 250 MG TAB PO SCH (09:03)
[2022-01-09] MEDS: ASPIRIN EC 81 MG TAB PO SCH (09:03)
[2022-01-09] MEDS: FAMOTIDINE 10 MG TAB PO SCH ×2 (09:03→21:45)
[2022-01-09] MEDS: amLODIPine 10 MG TAB PO SCH (09:03)
[2022-01-09] MEDS: MULTIVITAMINS ,THERAPEUTIC TAB PO SCH (09:03)
[2022-01-09] MEDS: LEVOTHYROXINE 100 MCG INJ IV SCH (09:03)
[2022-01-09] MEDS: APIXABAN 2.5 MG TAB PO SCH ×2 (09:03→21:45)
[2022-01-09] MEDS: PRAVASTATIN 40 MG TAB PO SCH (09:03)
[2022-01-09] MEDS: POTASSIUM CHLORIDE 10 MEQ 10 MEQ/100 ML BAG IV SCH (09:15)
[2022-01-09] MEDS ORDERED: SODIUM CHLORIDE 0.9% 100 ML IV PRN (10:18)
[2022-01-09] MEDS ORDERED: EPOETIN ALFA-EPBX 10,000 UNIT/1 ML VIAL IV PRN (10:18)
[2022-01-09] MEDS ORDERED: ALBUMIN HUMAN 25% (25 GM/100 ML) INJ IV PRN (10:18)
--- NOTE | 2022-01-09 10:18 | Progress Note ---
Assessment and Plan Impression: * ESRD * AMS * PNA * HTN * HTN * Covid PUI Plan: * HD q MWF * no emergent indication for MRI TECHNICIAN at this time * strict i/os and lytes prn * Renal diet * viral and infectious workup and treatment per primary team * uf as tolerated with hd Subjective Date of service: 01/09/22 Principal diagnosis: esrd Interval history: labs and chart reviewed resting in bed today Objective - Exam Narrative Exam: General appearance: Present: no acute distress, well-nourished - EENT Eyes: Present: PERRL ENT: hearing intact, clear oral mucosa - Neck Neck: Present: supple, normal ROM - Respiratory Respiratory effort: normal Respiratory: bilateral: CTA - Cardiovascular Heart Sounds: Present: S1 & S2. Absent: rub, click - Extremities Extremities: pulses symmetrical, No edema Peripheral Pulses: within normal limits - Abdominal General gastrointestinal: Present: soft, non-tender, non-distended, normal bowel sounds Male genitourinary: Present: normal - Integumentary Integumentary: Present: clear, warm, dry - Musculoskeletal Musculoskeletal: gait normal, strength equal bilaterally - Psychiatric Psychiatric: other (Altered mental status) - Neurologic Neurologic: CNII-XII intact, moves all extremities - Vital Signs Vital signs: Vital Signs - 12hr 01/08/22 01/09/22 01/09/22 23:39 02:25 04:22 Temperature 98.2 F 97.5 F L Pulse Rate 67 68 Respiratory 16 16 Rate Blood Pressure 103/56 123/68 [Left] O2 Sat by Pulse 97 92 98 Oximetry - Lab 01/09/22 07:49 01/09/22 07:49 Most recent lab results Calcium 8.3 mg/dL (8.4-10.2) L 01/09/22 07:49 Medications & Allergies - Medications Allergies/Adverse Reactions: Allergies No Known Allergies Allergy (Verified 01/07/22 17:27) Home Medications: Home Medications Medication Instructions Recorded Confirmed Last Taken Type Alendronate Sodium 70 mg PO QWEEK 08/03/15 01/08/22 2 Days Ago History ~10/12/16 Amlodipine Besylate 10 mg PO QDAY 08/03/15 01/08/22 2 Days Ago History ~10/12/16 Apixaban [Eliquis] 2.5 mg PO BID 08/03/15 01/08/22 2 Days Ago History ~10/12/16 Aspirin EC [Aspirin Enteric Coated 81 mg PO QDAY 08/03/15 01/08/22 2 Days Ago History TAB] ~10/12/16 Bimatoprost [Lumigan 0.01%] 1 drop OU QDAY 08/03/15 01/08/22 2 Days Ago History ~10/12/16 Dutasteride [Avodart] 0.5 mg PO QDAY 08/03/15 01/08/22 2 Days Ago History ~10/12/16 Febuxostat (Nf) [Uloric (Nf)] 40 mg PO QDAY 08/03/15 01/08/22 2 Days Ago History ~10/12/16 Hydrochlorothiazide [HCTZ] 50 mg PO QDAY 08/03/15 01/08/22 2 Days Ago History ~10/12/16 Metoprolol [Lopressor] 50 mg PO BID 08/03/15 01/08/22 2 Days Ago History ~10/12/16 Multivitamin Tab [Multiple Vitamin 1 tab PO QDAY 08/03/15 01/08/22 2 Days Ago History TAB (Theragran)] ~10/12/16 Nitroglycerin [Nitrostat] 0.4 mg SL Q5M PRN 08/03/15 01/08/22 1 Week Ago History ~07/27/15 Psyllium Seed (with Sugar) 1 each PO QDAY 08/03/15 01/08/22 2 Days Ago History [Metamucil] ~10/12/16 Simvastatin 20 mg PO QDAY 08/03/15 01/08/22 2 Days Ago History ~10/12/16 Tamsulosin HCl 0.4 mg PO QPM 08/03/15 01/08/22 2 Days Ago History ~10/12/16 Cholecalciferol Vit D3 [Vitamin D3] 1,000 unit PO BID 08/20/15 01/08/22 2 Days Ago History ~10/12/16 Active Medications: Generic Name Dose Route Start Last Admin Trade Name Freq PRN Reason Stop Dose Admin Acetaminophen 650 mg 01/07/22 21:51 01/08/22 21:59 Acetaminophen 325 Mg Tab PO 650 mg Q4H PRN Administration Pain MILD(1-3)/Fever >100.5/DIAZ Albuterol 2.5 mg 01/07/22 21:51 Albuterol 2.5 Mg/3 Ml Nebu IH Q3HRT PRN Shortness Of Breath Amlodipine Besylate 10 mg 01/08/22 10:00 01/09/22 09:03 Amlodipine 10 Mg Tab PO 10 mg QDAY NICK Administration Apixaban 2.5 mg 01/07/22 22:00 01/09/22 09:03 Apixaban 2.5 Mg Tab PO 2.5 mg BID NICK Administration Aspirin 81 mg 01/08/22 10:00 01/09/22 09:03 Aspirin Ec 81 Mg Tab PO 81 mg QDAY NICK Administration Azithromycin 500 mg 01/08/22 10:00 01/09/22 09:03 Azithromycin 250 Mg Tab PO 500 mg QDAY NICK Administration Protocol Famotidine 10 mg 01/07/22 22:00 01/09/22 09:03 Famotidine 10 Mg Tab PO 10 mg BID NICK Administration Ceftriaxone Sodium 2 gm in 100 mls @ 200 mls/hr 01/08/22 10:00 01/09/22 09:02 Rocephin/Ns 2 Gm/100 Ml IV 200 mls/hr Q24H NICK Administration Protocol Latanoprost 1 drops 01/08/22 18:00 01/09/22 07:58 Latanoprost 0.005% Ophth Soln 2.5 Ml OU Not Given QPM [facility] Levothyroxine Sodium 100 mcg 01/08/22 10:00 01/09/22 09:03 Levothyroxine 100 Mcg Inj IV 100 mcg DAILY NICK Administration Miscellaneous Medication 40 mg 01/08/22 10:00 Febuxostat (Nf) PO QDAY [facility] Morphine Sulfate 2 mg 01/07/22 21:51 Morphine 2 Mg/1 Ml Inj IV Q4H PRN Pain, Moderate (4-6) Morphine Sulfate 4 mg 01/07/22 21:51 Morphine 4 Mg/1 Ml Inj IV Q4H PRN Pain , Severe (7-10) Multivitamins 1 each 01/08/22 10:00 01/09/22 09:03 Multivitamins ,Therapeutic Tab PO 1 each QDAY NICK Administration Nitroglycerin 0.4 mg 01/07/22 21:53 Nitroglycerin 0.4 Mg Tab Subl SL Q5M PRN Chest Pain Ondansetron HCl 4 mg 01/07/22 21:51 Ondansetron 4 Mg/2 Ml Inj IV Q8H PRN Nausea And Vomiting Pravastatin Sodium 40 mg 01/08/22 10:00 01/09/22 09:03 Pravastatin 40 Mg Tab PO 40 mg QDAY NICK Administration Sodium Chloride 10 ml 01/07/22 22:00 01/09/22 09:03 Sodium Chloride 0.9% 10 Ml Flush Syringe IV 10 ml BID NICK Administration Sodium Chloride 10 ml 01/07/22 21:51 Sodium Chloride 0.9% 10 Ml Flush Syringe IV PRN PRN LINE FLUSH Tamsulosin HCl 0.4 mg 01/08/22 18:00 01/08/22 18:46 Tamsulosin 0.4 Mg Cap PO 0.4 mg QPM NICK Administration
[2022-01-09] MEDS ORDERED: POTASSIUM CHLORIDE ER 20 MEQ TAB PO ONE (11:00)
[2022-01-09 11:17] LABS: Hepatitis B Surface Antigen Non-Reactive (Negative); Hepatitis C Virus Antibody Non-Reactive (NonReactive)
[2022-01-09 12:20] LABS: Band Neutrophils # (Manual) 0.4 K/mm3; Basophils % (Manual) 0 % (0.0-1.8); Myelocytes # (Manual) 0.1 K/mm3; Platelet Estimate Consistent w Auto; Stomatocytes 1+; Total Cells Counted 100
--- NOTE | 2022-01-09 12:49 | Progress Note ---
Assessment and Plan Assessment and plan: #Acute metabolic encephalopathyimproving #Lactic acidosisimproving #Possible community-acquired pneumonia secondary to gram-negative rods versus atypical bacteria Unremarkable CT head noncontrast Possibly secondary to suspected pneumonia secondary to gram-negative rods ve rsus atypical bacteria Continue Rocephin 2 g daily and p.o. azithromycin 5 mg daily Status post IV fluid resuscitation. Continuing to trend lactic acid until unremarkable. Blood cultures NGTD x24 hours Continue to monitor. #ESRD on hemodialysis -Access: Permacath in upper right chest -Outpatient schedule: Limited further -HD center: Unknown -Nephrology consulted; appreciate recs. -Renally dose medications and avoid nephrotoxic drugs. Renal diet. 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 Continue to trend troponins. 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 status. Only utilize PEG tube for po meds and nutrition. #Advanced care planning -Disease education conducted, care plan discussed, diagnoses discussed, prognosis discussed, and patient acknowledges understanding with care plan -Time: +30 min #Discharge planning - Patient is pending blood cultures NGTD x48-72 hours, resolution of lactic acidosis, and resolution of metabolic encephalopathy. - Case management has been made aware. - Discharge is tentatively 24-48 hours. Disposition Plan: Continue medical management Total Time Spent with Patient (Minutes): 45 minutes History Interval history: No acute events overnight. Hospitalist Physical - Constitutional Vitals: Temp Pulse Resp BP Pulse Ox 97.5 F L 68 16 123/68 97 01/09/22 04:22 01/09/22 04:22 01/09/22 04:22 01/09/22 04:22 01/09/22 12:00 General appearance: Present: no acute distress, well-nourished, other (Cognitive deficits secondary to recent hemorrhagic CVA) - EENT Eyes: Present: PERRL, EOM intact ENT: hearing intact, clear oral mucosa, dentition normal - Neck Neck: Present: supple, normal ROM - Respiratory Respiratory effort: normal Respiratory: bilateral: CTA - Cardiovascular Rhythm: regular Heart Sounds: Present: S1 & S2 - Extremities Extremities: pulses intact, pulses symmetrical, No edema, normal temperature, normal color Peripheral Pulses: within normal limits - Abdominal General gastrointestinal: soft, non-tender, non-distended, normal bowel sounds, other (PEG tube in place) - Integumentary Integumentary: Present: clear, warm, dry - Psychiatric Psychiatric: appropriate mood/affect, cooperative - Neurologic Neurologic: CNII-XII intact - Allied Health Allied health notes reviewed: nursing HEART Score - HEART Score Troponin: Troponin T 0.289 ng/mL (0.00-0.029) H* 01/07/22 18:30 Results - Labs CBC & Chem 7: 01/09/22 07:49 01/09/22 07:49 Labs: Laboratory Last Values WBC 8.5 K/mm3 (4.5-11.0) 01/09/22 07:49 RBC 3.56 M/mm3 (3.65-5.03) L 01/09/22 07:49 Hgb 10.6 gm/dl (11.8-15.2) L 01/09/22 07:49 Hct 32.3 % (35.5-45.6) L 01/09/22 07:49 MCV 91 fl (84-94) 01/09/22 07:49 MCH 30 pg (28-32) 01/09/22 07:49 MCHC 33 % (32-34) 01/09/22 07:49 RDW 19.6 % (13.2-15.2) H 01/09/22 07:49 Plt Count 84 K/mm3 (140-440) L 01/09/22 07:49 [place] % (Auto) Dye Room Helper 01/09/22 07:49 Add Manual Diff Complete 01/09/22 07:49 Total Counted 100 01/09/22 07:49 Seg Neuts % (Manual) 69.0 % (40.0-70.0) 01/09/22 07:49 Band Neutrophils % 5.0 % 01/09/22 07:49 Lymphocytes % (Manual) 8.0 % (13.4-35.0) L 01/09/22 07:49 Reactive Lymphs % (Man) 1.0 % 01/09/22 07:49 Monocytes % (Manual) 12.0 % (0.0-7.3) H 01/09/22 07:49 Eosinophils % (Manual) 3.0 % (0.0-4.3) 01/09/22 07:49 Basophils % (Manual) 0 % (0.0-1.8) 01/09/22 07:49 Metamyelocytes % 1.0 % 01/09/22 07:49 Myelocytes % 1.0 % 01/09/22 07:49 Promyelocytes % 0 % 01/09/22 07:49 Blast Cells % 0 % 01/09/22 07:49 Nucleated RBC % Not Reportable 01/09/22 07:49 Seg Neutrophils # Man 5.9 K/mm3 (1.8-7.7) 01/09/22 07:49 Band Neutrophils # 0.4 K/mm3 01/09/22 07:49 Lymphocytes # (Manual) 0.7 K/mm3 (1.2-5.4) L 01/09/22 07:49 Abs React Lymphs (Man) 0.1 K/mm3 01/09/22 07:49 Monocytes # (Manual) 1.0 K/mm3 (0.0-0.8) H 01/09/22 07:49 Eosinophils # (Manual) 0.3 K/mm3 (0.0-0.4) 01/09/22 07:49 Basophils # (Manual) 0.0 K/mm3 (0.0-0.1) 01/09/22 07:49 Metamyelocytes # 0.1 K/mm3 01/09/22 07:49 Myelocytes # 0.1 K/mm3 01/09/22 07:49 Promyelocytes # 0.0 K/mm3 01/09/22 07:49 Blast Cells # 0.0 K/mm3 01/09/22 07:49 WBC Morphology Not Reportable 01/09/22 07:49 Hypersegmented Neuts Not Reportable 01/09/22 07:49 Hyposegmented Neuts Not Reportable 01/09/22 07:49 Hypogranular Neuts Not Reportable 01/09/22 07:49 Smudge Cells Not Reportable 01/09/22 07:49 Toxic Granulation Not Reportable 01/09/22 07:49 Toxic Vacuolation Not Reportable 01/09/22 07:49 Dohle Bodies Not Reportable 01/09/22 07:49 Pelger-Huet Anomaly Not Reportable 01/09/22 07:49 Donna Rods Not Reportable 01/09/22 07:49 Platelet Estimate Consistent w auto 01/09/22 07:49 Clumped Platelets Not Reportable 01/09/22 07:49 Plt Clumps, EDTA Not Reportable 01/09/22 07:49 Large Platelets Not Reportable 01/09/22 07:49 Giant Platelets Not Reportable 01/09/22 07:49 Platelet Satelliting Not Reportable 01/09/22 07:49 Plt Morphology Comment Not Reportable 01/09/22 07:49 RBC Morphology Not Reportable 01/09/22 07:49 Dimorphic RBCs Not Reportable 01/09/22 07:49 Polychromasia Not Reportable 01/09/22 07:49 Hypochromasia Not Reportable 01/09/22 07:49 Poikilocytosis Not Reportable 01/09/22 07:49 Anisocytosis Not Reportable 01/09/22 07:49 Microcytosis Not Reportable 01/09/22 07:49 Macrocytosis Not Reportable 01/09/22 07:49 Spherocytes Not Reportable 01/09/22 07:49 Pappenheimer Bodies Not Reportable 01/09/22 07:49 Sickle Cells Not Reportable 01/09/22 07:49 Target Cells Not Reportable 01/09/22 07:49 Tear Drop Cells Not Reportable 01/09/22 07:49 Ovalocytes Not Reportable 01/09/22 07:49 Stomatocytes 1+ 01/09/22 07:49 Helmet Cells Not Reportable 01/09/22 07:49 [place] Bodies Not Reportable 01/09/22 07:49 Recluse Rings Not Reportable 01/09/22 07:49 Wilbert Cells Not Reportable 01/09/22 07:49 Bite Cells Not Reportable 01/09/22 07:49 Crenated Cell Not Reportable 01/09/22 07:49 Elliptocytes Not Reportable 01/09/22 07:49 Acanthocytes (Spur) Not Reportable 01/09/22 07:49 Rouleaux Not Reportable 01/09/22 07:49 Hemoglobin C Crystals Not Reportable 01/09/22 07:49 Schistocytes Not Reportable 01/09/22 07:49 Malaria parasites Not Reportable 01/09/22 07:49 Brian Bodies Not Reportable 01/09/22 07:49 Hem Pathologist Commnt No 01/09/22 07:49 Sodium 137 mmol/L (137-145) 01/09/22 07:49 Potassium 3.5 mmol/L (3.6-5.0) L 01/09/22 07:49 Chloride 97.8 mmol/L (98-107) L 01/09/22 07:49 Carbon Dioxide 29 mmol/L (22-30) 01/09/22 07:49 Anion Gap 14 mmol/L 01/09/22 07:49 BUN 31 mg/dL (9-20) H 01/09/22 07:49 Creatinine 3.5 mg/dL (0.8-1.3) H 01/09/22 07:49 Estimated GFR 20 ml/min 01/09/22 07:49 BUN/Creatinine Ratio 9 % 01/09/22 07:49 Glucose 92 mg/dL (75-100) 01/09/22 07:49 POC Glucose 118 mg/dL (70-105) H 01/08/22 16:58 Lactic Acid 2.10 mmol/L (0.7-2.0) H* 01/09/22 07:49 Calcium 8.3 mg/dL (8.4-10.2) L 01/09/22 07:49 Ammonia 17.0 umol/L (25-60) L 01/07/22 18:30 Total Creatine Kinase 34 units/L (55-170) L 01/07/22 18:30 CK-MB (CK-2) 2.1 ng/mL (0.0-4.0) 01/07/22 18:30 CK-MB (CK-2) Rel Index 6.1 (0-4) H 01/07/22 18:30 Troponin T 0.289 ng/mL (0.00-0.029) H* 01/07/22 18:30 NT-Pro-B Natriuret Pep 1790 pg/mL (0-900) H 01/08/22 13:30 Triglycerides 247 mg/dL (2-149) H 01/07/22 18:30 Cholesterol 83 mg/dL (50-199) 01/07/22 18:30 LDL Cholesterol Direct 9 mg/dL (50-130) L 01/07/22 18:30 HDL Cholesterol 22 mg/dL (40-59) L 01/07/22 18:30 Cholesterol/HDL Ratio 3.77 % 01/07/22 18:30 TSH 158.100 mlU/mL (0.270-4.200) H 01/09/22 07:49 Free T4 0.50 ng/dL (0.76-1.46) L 01/09/22 07:49 Urine Color Vickie (Yellow) 01/09/22 Unknown Urine Turbidity Cloudy (Clear) 01/09/22 Unknown Urine pH 6.0 (5.0-7.0) 01/09/22 Unknown Ur Specific [place] 1.020 (1.003-1.030) 01/09/22 Unknown Urine Protein >2000 mg dl mg/dL (Negative) 01/09/22 Unknown Urine Glucose (UA) Negative mg/dL (Negative) 01/09/22 Unknown Urine Ketones Negative mg/dL (Negative) 01/09/22 Unknown Urine Blood Moderate (Negative) A 01/09/22 Unknown Urine Nitrite Negative (Negative) 01/09/22 Unknown Urine Bilirubin Negative (Negative) 01/09/22 Unknown Urine Urobilinogen < 2.0 mg/dL (<2.0) 01/09/22 Unknown Ur Leukocyte Esterase Moderate (Negative) 01/09/22 Unknown SARS-CoV-2 (PCR) Negative (Negative) 01/08/22 10:30 Hepatitis A IgM Ab Non-reactive (NonReactive) 01/09/22 07:49 Hep Bs Antigen Non-reactive (Negative) 01/09/22 07:49 Hep B Core IgM Ab Non-reactive (NonReactive) 01/09/22 07:49 Hepatitis C Antibody Non-reactive (NonReactive) 01/09/22 07:49 Microbiology: Microbiology 01/07/22 21:18 Peripheral/Venous Blood Culture - Preliminary NO GROWTH AFTER 24 HOURS 01/07/22 21:18 Peripheral/Venous Blood Culture - Preliminary NO GROWTH AFTER 24 HOURS Bryan/IV: Voiding Method Indwelling Catheter Active Medications - Current Medications Current Medications: Generic Name Dose Route Start Last Admin Trade Name Freq PRN Reason Stop Dose Admin Acetaminophen 650 mg 01/07/22 21:51 01/08/22 21:59 Acetaminophen 325 Mg Tab PO 650 mg Q4H PRN Administration Pain MILD(1-3)/Fever >100.5/DIAZ Albumin Human 25 gm 01/09/22 10:18 Albumin Human 25% (25 Gm/100 Ml) Inj IV ERIC PRN Hypotension Albuterol 2.5 mg 01/07/22 21:51 Albuterol 2.5 Mg/3 Ml Nebu IH Q3HRT PRN Shortness Of Breath Amlodipine Besylate 10 mg 01/08/22 10:00 01/09/22 09:03 Amlodipine 10 Mg Tab PO 10 mg QDAY NICK Administration Apixaban 2.5 mg 01/07/22 22:00 01/09/22 09:03 Apixaban 2.5 Mg Tab PO 2.5 mg BID NICK Administration Aspirin 81 mg 01/08/22 10:00 01/09/22 09:03 Aspirin Ec 81 Mg Tab PO 81 mg QDAY NICK Administration Azithromycin 500 mg 01/08/22 10:00 01/09/22 09:03 Azithromycin 250 Mg Tab PO 500 mg QDAY NICK Administration Protocol Epoetin Duke-epbx 10,000 unit 01/09/22 10:18 Epoetin Duke-Epbx 10,000 Unit/1 Ml Vial IV ERIC PRN hemodialysis Famotidine 10 mg 01/07/22 22:00 01/09/22 09:03 Famotidine 10 Mg Tab PO 10 mg BID NICK Administration Ceftriaxone Sodium 2 gm in 100 mls @ 200 mls/hr 01/08/22 10:00 01/09/22 09:02 Rocephin/Ns 2 Gm/100 Ml IV 200 mls/hr Q24H NICK Administration Protocol Sodium Chloride 100 mls @ 999 mls/hr 01/09/22 10:18 Nacl 0.9% IV ERIC PRN Hypotension Latanoprost 1 drops 01/08/22 18:00 01/09/22 07:58 Latanoprost 0.005% Ophth Soln 2.5 Ml OU Not Given QPM NICK Levothyroxine Sodium 100 mcg 01/08/22 10:00 01/09/22 09:03 Levothyroxine 100 Mcg Inj IV 100 mcg DAILY NICK Administration Miscellaneous Medication 40 mg 01/08/22 10:00 Febuxostat (Nf) PO QDAY INCK Morphine Sulfate 2 mg 01/07/22 21:51 Morphine 2 Mg/1 Ml Inj IV Q4H PRN Pain, Moderate (4-6) Morphine Sulfate 4 mg 01/07/22 21:51 Morphine 4 Mg/1 Ml Inj IV Q4H PRN Pain , Severe (7-10) Multivitamins 1 each 01/08/22 10:00 01/09/22 09:03 Multivitamins ,Therapeutic Tab PO 1 each QDAY NICK Administration Nitroglycerin 0.4 mg 01/07/22 21:53 Nitroglycerin 0.4 Mg Tab Subl SL Q5M PRN Chest Pain Ondansetron HCl 4 mg 01/07/22 21:51 Ondansetron 4 Mg/2 Ml Inj IV Q8H PRN Nausea And Vomiting Pravastatin Sodium 40 mg 01/08/22 10:00 01/09/22 09:03 Pravastatin 40 Mg Tab PO 40 mg QDAY NICK Administration Sodium Chloride 10 ml 01/07/22 22:00 01/09/22 09:03 Sodium Chloride 0.9% 10 Ml Flush Syringe IV 10 ml BID NICK Administration Sodium Chloride 10 ml 01/07/22 21:51 Sodium Chloride 0.9% 10 Ml Flush Syringe IV PRN PRN LINE FLUSH Tamsulosin HCl 0.4 mg 01/08/22 18:00 01/08/22 18:46 Tamsulosin 0.4 Mg Cap PO 0.4 mg QPM NICK Administration
--- NOTE | 2022-01-09 13:06 | Progress Note ---
Assessment and Plan - Patient Problems (1) Elevated troponin Current Visit: No Status: Acute Plan to address problem: Patient elevated troponin likely from his end-stage renal disease, altered mental status, lactic acidosis. No evidence of ACS on EKG. Continue to trend troponins x2 We will check BNP to make sure there is no competent of congestive heart failure for his x-ray finding Echocardiogram still pending (2) Atrial fibrillation Current Visit: No Status: Chronic Qualifiers: Atrial fibrillation type: paroxysmal Qualified Code(s): I48.0 - Paroxysmal atrial fibrillation Plan to address problem: Patient currently appears to be in sinus rhythm with PACs. Continue the current management continue apixaban if no contraindications (3) HTN (hypertension) Current Visit: No Status: Chronic Subjective Principal diagnosis: esrd Interval history: Patient still about the same. No active complaints. Denies any chest pain or shortness of breath Objective Vital Signs Temp Pulse Resp BP BP Pulse Ox 01/09/22 12:00 97 01/09/22 10:00 94 01/09/22 04:22 97.5 F L 68 16 123/68 98 01/09/22 02:25 98.2 F 67 16 103/56 92 01/08/22 23:39 97 01/08/22 20:04 94 01/08/22 15:55 97.6 F 63 1 L 88/52 99 01/08/22 14:00 97 - Physical Examination General: No Apparent Distress HEENT: Positive: Normocephaly Neck: Negative: JVD/HJR Cardiac: Positive: Reg Rate and Rhythm, S1/S2 Lungs: Positive: Decreased Breath Sounds Neuro: Positive: Grossly Intact Extremities: Absent: edema - Labs and Meds CBC 01/09/22 Range/Units 07:49 WBC 8.5 (4.5-11.0) K/mm3 RBC 3.56 L (3.65-5.03) M/mm3 Hgb 10.6 L (11.8-15.2) gm/dl Hct 32.3 L (35.5-45.6) % Plt Count 84 L (140-440) K/mm3 Comprehensive Metabolic Panel 01/09/22 Range/Units 07:49 Sodium 137 (137-145) mmol/L Potassium 3.5 L (3.6-5.0) mmol/L Chloride 97.8 L (98-107) mmol/L Carbon Dioxide 29 (22-30) mmol/L BUN 31 H (9-20) mg/dL Creatinine 3.5 H (0.8-1.3) mg/dL Glucose 92 (75-100) mg/dL Calcium 8.3 L (8.4-10.2) mg/dL - EKG Sinus rhythms and dysrhythmias: sinus rhythm (Possible sinus rhythm with PACs)
[2022-01-09] MEDS: TAMSULOSIN 0.4 MG CAP PO SCH (17:31)
[2022-01-10] MEDS: LEVOTHYROXINE 100 MCG TAB PO SCH (05:52)
[2022-01-10 08:37] LABS: Calcium 8.6 mg/dL (8.4-10.2)
[2022-01-10 08:45] LABS: Hematocrit 36.2 % (35.5-45.6); Hemoglobin 11.5 gm/dl (11.8-15.2); Mean Corpuscular HGB Conc 32 % (32-34); Mean Corpuscular Volume 91 fl (84-94); Platelet Count 100 K/mm3 (140-440); Red Blood Count 3.96 M/mm3 (3.65-5.03); Red Cell Distribution Width 18.9 % (13.2-15.2)
[2022-01-10] MEDS: amLODIPine 10 MG TAB PO SCH (10:00)
[2022-01-10] MEDS: APIXABAN 2.5 MG TAB PO SCH ×2 (10:07→23:06)
[2022-01-10] MEDS: MULTIVITAMINS ,THERAPEUTIC TAB PO SCH (10:07)
[2022-01-10] MEDS: ASPIRIN EC 81 MG TAB PO SCH (10:07)
[2022-01-10] MEDS: PRAVASTATIN 40 MG TAB PO SCH (10:07)
[2022-01-10] MEDS: AZITHROMYCIN 250 MG TAB PO SCH (10:08)
[2022-01-10] MEDS: cefTRIAXone/NS 2 GM/100 ML 2 GM/100 ML BAG IV SCH (10:08)
--- NOTE | 2022-01-10 11:07 | Progress Note ---
Assessment and Plan Assessment and plan: #Acute metabolic encephalopathyresolved #Lactic acidosisworsened #Possible community-acquired pneumonia secondary to gram-negative rods versus atypical bacteriaruled out Unremarkable CT head noncontrast. Lactic acid 2.1--> 2.7. Continuing to trend lactic acid Possibly secondary to suspected pneumonia secondary to gram-negative rods versus atypical bacteria Discontinuing antibiotics (Rocephin 2 g daily and p.o. azithromycin 500 mg daily). Status post IV fluid resuscitation. Continuing to trend lactic acid until unremarkable. Blood cultures NGTD x 72 hours Continue to monitor. #ESRD on hemodialysis -Access: Permacath in upper right chest -Outpatient schedule: Limited further -HD center: Unknown -Nephrology consulted; appreciate recs. -Renally dose medications and avoid nephrotoxic drugs. Renal diet. 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 Continue to trend troponins. proBNP 2602. Pending TTE to evaluate cardiac function. 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 status. Only utilize PEG tube for po meds and nutrition. #Advanced care planning -Disease education conducted, care plan discussed, diagnoses discussed, prognosis discussed, and patient acknowledges understanding with care plan -Time: +30 min #Discharge planning - Patient is pending resolution of lactic acidosis and final work-up of possible heart failure - Case management has been made aware. Disposition Plan: Continue medical management Total Time Spent with Patient (Minutes): 45 minutes History Interval history: No acute events overnight. Hospitalist Physical - Constitutional Vitals: Temp Pulse Resp BP Pulse Ox 97.8 F 89 18 118/72 93 01/10/22 04:22 01/10/22 04:22 01/10/22 04:22 01/10/22 04:22 01/10/22 04:22 General appearance: Present: no acute distress, well-nourished, other (Cognitive deficits secondary to recent hemorrhagic CVA) - EENT Eyes: Present: PERRL, EOM intact ENT: hearing intact, clear oral mucosa, dentition normal - Neck Neck: Present: supple, normal ROM - Respiratory Respiratory effort: normal Respiratory: bilateral: CTA - Cardiovascular Rhythm: regular Heart Sounds: Present: S1 & S2 - Extremities Extremities: no ischemia, pulses intact, pulses symmetrical, No edema, normal temperature, normal color Peripheral Pulses: within normal limits - Abdominal General gastrointestinal: soft, non-tender, non-distended, normal bowel sounds, other (PEG tube in place) - Integumentary Integumentary: Present: clear, warm, dry - Psychiatric Psychiatric: appropriate mood/affect, cooperative - Neurologic Neurologic: CNII-XII intact, moves all extremities - Allied Health Allied health notes reviewed: nursing HEART Score - HEART Score Troponin: Troponin T 0.289 ng/mL (0.00-0.029) H* 01/07/22 18:30 Results - Labs CBC & Chem 7: 01/10/22 07:54 01/10/22 07:54 Labs: Laboratory Last Values WBC 8.8 K/mm3 (4.5-11.0) 01/10/22 07:54 RBC 3.96 M/mm3 (3.65-5.03) 01/10/22 07:54 Hgb 11.5 gm/dl (11.8-15.2) L 01/10/22 07:54 Hct 36.2 % (35.5-45.6) 01/10/22 07:54 MCV 91 fl (84-94) 01/10/22 07:54 MCH 29 pg (28-32) 01/10/22 07:54 MCHC 32 % (32-34) 01/10/22 07:54 RDW 18.9 % (13.2-15.2) H 01/10/22 07:54 Plt Count 100 K/mm3 (140-440) L 01/10/22 07:54 Harney % (Auto) House Mover 01/10/22 07:54 Add Manual Diff Complete 01/09/22 07:49 Total Counted 100 01/09/22 07:49 Seg Neuts % (Manual) 69.0 % (40.0-70.0) 01/09/22 07:49 Band Neutrophils % 5.0 % 01/09/22 07:49 Lymphocytes % (Manual) 8.0 % (13.4-35.0) L 01/09/22 07:49 Reactive Lymphs % (Man) 1.0 % 01/09/22 07:49 Monocytes % (Manual) 12.0 % (0.0-7.3) H 01/09/22 07:49 Eosinophils % (Manual) 3.0 % (0.0-4.3) 01/09/22 07:49 Basophils % (Manual) 0 % (0.0-1.8) 01/09/22 07:49 Metamyelocytes % 1.0 % 01/09/22 07:49 Myelocytes % 1.0 % 01/09/22 07:49 Promyelocytes % 0 % 01/09/22 07:49 Blast Cells % 0 % 01/09/22 07:49 Nucleated RBC % Not Reportable 01/09/22 07:49 Seg Neutrophils # Man 5.9 K/mm3 (1.8-7.7) 01/09/22 07:49 Band Neutrophils # 0.4 K/mm3 01/09/22 07:49 Lymphocytes # (Manual) 0.7 K/mm3 (1.2-5.4) L 01/09/22 07:49 Abs React Lymphs (Man) 0.1 K/mm3 01/09/22 07:49 Monocytes # (Manual) 1.0 K/mm3 (0.0-0.8) H 01/09/22 07:49 Eosinophils # (Manual) 0.3 K/mm3 (0.0-0.4) 01/09/22 07:49 Basophils # (Manual) 0.0 K/mm3 (0.0-0.1) 01/09/22 07:49 Metamyelocytes # 0.1 K/mm3 01/09/22 07:49 Myelocytes # 0.1 K/mm3 01/09/22 07:49 Promyelocytes # 0.0 K/mm3 01/09/22 07:49 Blast Cells # 0.0 K/mm3 01/09/22 07:49 WBC Morphology Not Reportable 01/09/22 07:49 Hypersegmented Neuts Not Reportable 01/09/22 07:49 Hyposegmented Neuts Not Reportable 01/09/22 07:49 Hypogranular Neuts Not Reportable 01/09/22 07:49 Smudge Cells Not Reportable 01/09/22 07:49 Toxic Granulation Not Reportable 01/09/22 07:49 Toxic Vacuolation Not Reportable 01/09/22 07:49 Dohle Bodies Not Reportable 01/09/22 07:49 Pelger-Huet Anomaly Not Reportable 01/09/22 07:49 Donna Rods Not Reportable 01/09/22 07:49 Platelet Estimate Consistent w auto 01/09/22 07:49 Clumped Platelets Not Reportable 01/09/22 07:49 Plt Clumps, EDTA Not Reportable 01/09/22 07:49 Large Platelets Not Reportable 01/09/22 07:49 Giant Platelets Not Reportable 01/09/22 07:49 Platelet Satelliting Not Reportable 01/09/22 07:49 Plt Morphology Comment Not Reportable 01/09/22 07:49 RBC Morphology Not Reportable 01/09/22 07:49 Dimorphic RBCs Not Reportable 01/09/22 07:49 Polychromasia Not Reportable 01/09/22 07:49 Hypochromasia Not Reportable 01/09/22 07:49 Poikilocytosis Not Reportable 01/09/22 07:49 Anisocytosis Not Reportable 01/09/22 07:49 Microcytosis Not Reportable 01/09/22 07:49 Macrocytosis Not Reportable 01/09/22 07:49 Spherocytes Not Reportable 01/09/22 07:49 Pappenheimer Bodies Not Reportable 01/09/22 07:49 Sickle Cells Not Reportable 01/09/22 07:49 Target Cells Not Reportable 01/09/22 07:49 Tear Drop Cells Not Reportable 01/09/22 07:49 Ovalocytes Not Reportable 01/09/22 07:49 Stomatocytes 1+ 01/09/22 07:49 Helmet Cells Not Reportable 01/09/22 07:49 [place]aty Bodies Not Reportable 01/09/22 07:49 [place] Rings Not Reportable 01/09/22 07:49 Wilbert Cells Not Reportable 01/09/22 07:49 Bite Cells Not Reportable 01/09/22 07:49 Crenated Cell Not Reportable 01/09/22 07:49 Elliptocytes Not Reportable 01/09/22 07:49 Acanthocytes (Spur) Not Reportable 01/09/22 07:49 Rouleaux Not Reportable 01/09/22 07:49 Hemoglobin C Crystals Not Reportable 01/09/22 07:49 Schistocytes Not Reportable 01/09/22 07:49 Malaria parasites Not Reportable 01/09/22 07:49 Brian Bodies Not Reportable 01/09/22 07:49 Hem Pathologist Commnt No 01/09/22 07:49 Sodium 137 mmol/L (137-145) 01/10/22 07:54 Potassium 3.7 mmol/L (3.6-5.0) 01/10/22 07:54 Chloride 99.0 mmol/L (98-107) 01/10/22 07:54 Carbon Dioxide 27 mmol/L (22-30) 01/10/22 07:54 Anion Gap 15 mmol/L 01/10/22 07:54 BUN 38 mg/dL (9-20) H 01/10/22 07:54 Creatinine 3.7 mg/dL (0.8-1.3) H 01/10/22 07:54 Estimated GFR 19 ml/min 01/10/22 07:54 BUN/Creatinine Ratio 10 % 01/10/22 07:54 Glucose 161 mg/dL (75-100) H 01/10/22 07:54 POC Glucose 160 mg/dL (70-105) H 01/09/22 20:54 Lactic Acid 2.70 mmol/L (0.7-2.0) H* 01/10/22 07:54 Calcium 8.6 mg/dL (8.4-10.2) 01/10/22 07:54 Ammonia 17.0 umol/L (25-60) L 01/07/22 18:30 Total Creatine Kinase 34 units/L (55-170) L 01/07/22 18:30 CK-MB (CK-2) 2.1 ng/mL (0.0-4.0) 01/07/22 18:30 CK-MB (CK-2) Rel Index 6.1 (0-4) H 01/07/22 18:30 Troponin T 0.289 ng/mL (0.00-0.029) H* 01/07/22 18:30 NT-Pro-B Natriuret Pep 2602 pg/mL (0-900) H 01/10/22 07:54 Triglycerides 247 mg/dL (2-149) H 01/07/22 18:30 Cholesterol 83 mg/dL (50-199) 01/07/22 18:30 LDL Cholesterol Direct 9 mg/dL (50-130) L 01/07/22 18:30 HDL Cholesterol 22 mg/dL (40-59) L 01/07/22 18:30 Cholesterol/HDL Ratio 3.77 % 01/07/22 18:30 TSH 158.100 mlU/mL (0.270-4.200) H 01/09/22 07:49 Free T4 0.50 ng/dL (0.76-1.46) L 01/09/22 07:49 Urine Color Vickie (Yellow) 01/09/22 Unknown Urine Turbidity Cloudy (Clear) 01/09/22 Unknown Urine pH 6.0 (5.0-7.0) 01/09/22 Unknown Ur Specific [place] 1.020 (1.003-1.030) 01/09/22 Unknown Urine Protein >2000 mg dl mg/dL (Negative) 01/09/22 Unknown Urine Glucose (UA) Negative mg/dL (Negative) 01/09/22 Unknown Urine Ketones Negative mg/dL (Negative) 01/09/22 Unknown Urine Blood Moderate (Negative) A 01/09/22 Unknown Urine Nitrite Negative (Negative) 01/09/22 Unknown Urine Bilirubin Negative (Negative) 01/09/22 Unknown Urine Urobilinogen < 2.0 mg/dL (<2.0) 01/09/22 Unknown Ur Leukocyte Esterase Moderate (Negative) 01/09/22 Unknown SARS-CoV-2 (PCR) Negative (Negative) 01/08/22 10:30 Hepatitis A IgM Ab Non-reactive (NonReactive) 01/09/22 07:49 Hep Bs Antigen Non-reactive (Negative) 01/09/22 07:49 Hep B Core IgM Ab Non-reactive (NonReactive) 01/09/22 07:49 Hepatitis C Antibody Non-reactive (NonReactive) 01/09/22 07:49 Microbiology: Microbiology 01/07/22 21:18 Peripheral/Venous Blood Culture - Preliminary NO GROWTH AFTER 48 HOURS 01/07/22 21:18 Peripheral/Venous Blood Culture - Preliminary NO GROWTH AFTER 48 HOURS Bryan/IV: Voiding Method Indwelling Catheter Active Medications - Current Medications Current Medications: Generic Name Dose Route Start Last Admin Trade Name Freq PRN Reason Stop Dose Admin Acetaminophen 650 mg 01/07/22 21:51 01/08/22 21:59 Acetaminophen 325 Mg Tab PO 650 mg Q4H PRN Administration Pain MILD(1-3)/Fever >100.5/DIAZ Albumin Human 25 gm 01/09/22 10:18 Albumin Human 25% (25 Gm/100 Ml) Inj IV ERIC PRN Hypotension Albuterol 2.5 mg 01/07/22 21:51 Albuterol 2.5 Mg/3 Ml Nebu IH Q3HRT PRN Shortness Of Breath Amlodipine Besylate 10 mg 01/08/22 10:00 01/09/22 09:03 Amlodipine 10 Mg Tab PO 10 mg QDAY NICK Administration Apixaban 2.5 mg 01/07/22 22:00 01/10/22 10:07 Apixaban 2.5 Mg Tab PO 2.5 mg BID NICK Administration Aspirin 81 mg 01/08/22 10:00 01/10/22 10:07 Aspirin Ec 81 Mg Tab PO 81 mg QDAY NICK Administration Azithromycin 500 mg 01/08/22 10:00 01/10/22 10:08 Azithromycin 250 Mg Tab PO 500 mg QDAY NICK Administration Protocol Epoetin Duke-epbx 10,000 unit 01/09/22 10:18 Epoetin Duke-Epbx 10,000 Unit/1 Ml Vial IV ERIC PRN hemodialysis Famotidine 20 mg 01/10/22 10:30 Famotidine 20 Mg Tab PO DAILY NICK Furosemide 40 mg 01/10/22 10:58 Furosemide 40 Mg/4 Ml Inj IV 01/10/22 18:01 0600,1800 NICK Ceftriaxone Sodium 2 gm in 100 mls @ 200 mls/hr 01/08/22 10:00 01/10/22 10:08 Rocephin/Ns 2 Gm/100 Ml IV 200 mls/hr Q24H NICK Administration Protocol Sodium Chloride 100 mls @ 999 mls/hr 01/09/22 10:18 Nacl 0.9% IV ERIC PRN Hypotension Latanoprost 1 drops 01/08/22 18:00 01/09/22 17:31 Latanoprost 0.005% Ophth Soln 2.5 Ml OU 1 drops QPM NICK Administration Levothyroxine Sodium 100 mcg 01/10/22 06:00 01/10/22 05:52 Levothyroxine 100 Mcg Tab PO 100 mcg DAILY@0600 NICK Administration Miscellaneous Medication 40 mg 01/08/22 10:00 Febuxostat (Nf) PO QDAY NICK Morphine Sulfate 2 mg 01/07/22 21:51 Morphine 2 Mg/1 Ml Inj IV Q4H PRN Pain, Moderate (4-6) Morphine Sulfate 4 mg 01/07/22 21:51 Morphine 4 Mg/1 Ml Inj IV Q4H PRN Pain , Severe (7-10) Multivitamins 1 each 01/08/22 10:00 01/10/22 10:07 Multivitamins ,Therapeutic Tab PO 1 each QDAY NICK Administration Nitroglycerin 0.4 mg 01/07/22 21:53 Nitroglycerin 0.4 Mg Tab Subl SL Q5M PRN Chest Pain Ondansetron HCl 4 mg 01/07/22 21:51 Ondansetron 4 Mg/2 Ml Inj IV Q8H PRN Nausea And Vomiting Pravastatin Sodium 40 mg 01/08/22 10:00 01/10/22 10:07 Pravastatin 40 Mg Tab PO 40 mg QDAY NICK Administration Sodium Chloride 10 ml 01/07/22 22:00 01/10/22 10:08 Sodium Chloride 0.9% 10 Ml Flush Syringe IV 10 ml BID NICK Administration Sodium Chloride 10 ml 01/07/22 21:51 Sodium Chloride 0.9% 10 Ml Flush Syringe IV PRN PRN LINE FLUSH Tamsulosin HCl 0.4 mg 01/08/22 18:00 01/09/22 17:31 Tamsulosin 0.4 Mg Cap PO 0.4 mg QPM NICK Administration Nutrition/Malnutrition Assess - Dietary Evaluation Nutrition/Malnutrition Findings: Nutrition Notes Start: 01/09/22 14:25 Freq: Status: Active Protocol: Document 01/09/22 14:25 GEMINI (Rec: 01/09/22 14:40 GEMINI [id number]) Nutrition Notes Need for Assessment generated from: MD Order Initial or Follow up Assessment Current Diagnosis CKD (stage V CKD),Hypertension ,Stroke Other Pertinent Diagnosis AMS, HIV/AIDS Current Diet NPO Labs/Tests K 3.5 Cl 97.8 BUN 31 Cr 3.5 Glu 118 Pertinent Medications Levothyroxine IV MVI KCl Pravastatin Height 5 ft 8 in Weight 81.3 kg [place] Body Weight (kg) 70.00 BMI 27.2 Intake Prior to Admission Good Weight change and time frame No 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 Weight Status Overweight Subjective/Other Information RD consult for write/manage tube feeding. Pt currently NPO with AMS and CVA residuals. Pt consumed 50% of Breakfast and Lunch 01/08 per physical assessment. Pt has PEG tube per Progress Note 01/08. 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 Is patient on ventilator? No Is Patient Ambulatory and/or Out of Bed No REE-([place] Jeor-confined to bed) 2173.275 Calculation Used for Recommendations [place] or Additional Notes 1.25-1.5g/kg PRO ABW 102-122g PRO q day 1000-1500mL q day or per MD Nutrition Intervention Nutrition Support: Initiate Nepro @ 15mL/hr and increase by 10mL q 6 hr to goal rate of 45mL/hr x 24hrs providing 1944kcal, 88g PRO, 785mL FW. Flush with 200mL q 4hr. Kcal 1,944 Protein (gm) 88 Fluid (mL) 785 Goal #1 Initiate tube feed within 24- 48hrs Goal #2 Pt to tolerate tube feeds. Goal #3 Tube feeds to provide >75% of estimated energy/protein needs through enteral nutrition. Follow-Up By: 01/12/22 Additional Comments Monitor TF rate, tolerance, and pt BM.
--- NOTE | 2022-01-10 11:20 | Progress Note ---
Assessment and Plan - Patient Problems (1) Elevated troponin Current Visit: No Status: Acute Plan to address problem: Patient elevated troponin likely from his end-stage renal disease, altered mental status, lactic acidosis. No evidence of ACS on EKG. Continue to trend troponins x2 ProBNP is slightly high, likely from ESRD may not be in overt heart failure Echocardiogram still pending (2) Atrial fibrillation Current Visit: No Status: Chronic Qualifiers: Atrial fibrillation type: paroxysmal Qualified Code(s): I48.0 - Paroxysmal atrial fibrillation Plan to address problem: Patient currently appears to be in sinus rhythm with PACs. Continue the current management continue apixaban (3) HTN (hypertension) Current Visit: No Status: Chronic Subjective Principal diagnosis: esrd Interval history: Patient still about the same. No active complaints. Objective Vital Signs Temp Pulse Resp BP Pulse Ox 01/10/22 04:22 97.8 F 89 18 118/72 93 01/09/22 21:13 95 01/09/22 20:53 95 01/09/22 20:49 98.6 F 103 H 18 134/81 90 01/09/22 15:54 98.0 F 87 18 124/73 94 01/09/22 12:00 97 - Physical Examination General: No Apparent Distress HEENT: Positive: Normocephaly Neck: Negative: JVD/HJR Cardiac: Positive: Reg Rate and Rhythm, S1/S2. Negative: Audible Murmur Lungs: Positive: clear to auscultation Neuro: Positive: Grossly Intact Extremities: Absent: edema - Labs and Meds CBC 01/10/22 Range/Units 07:54 WBC 8.8 (4.5-11.0) K/mm3 RBC 3.96 (3.65-5.03) M/mm3 Hgb 11.5 L (11.8-15.2) gm/dl Hct 36.2 (35.5-45.6) % Plt Count 100 L (140-440) K/mm3 Comprehensive Metabolic Panel 01/10/22 Range/Units 07:54 Sodium 137 (137-145) mmol/L Potassium 3.7 (3.6-5.0) mmol/L Chloride 99.0 (98-107) mmol/L Carbon Dioxide 27 (22-30) mmol/L BUN 38 H (9-20) mg/dL Creatinine 3.7 H (0.8-1.3) mg/dL Glucose 161 H (75-100) mg/dL Calcium 8.6 (8.4-10.2) mg/dL - EKG Sinus rhythms and dysrhythmias: sinus rhythm (Possible sinus rhythm with PACs)
--- NOTE | 2022-01-10 11:29 | Progress Note ---
Assessment and Plan Impression: * ESRD * AMS * PNA * HTN * Anemia of ESRD Plan: * HD q MWF * Continue antihypertensives, hold on HD days for systolics less than 160 no indication for hemodialysis today * EPO with hemodialysis prn * strict i/os and lytes prn * Renal diet * viral and infectious workup and treatment per primary team * uf as tolerated with hd * Cardiology and primary note reviewed Subjective Date of service: 01/10/22 Principal diagnosis: esrd Interval history: Acute encephalopathy Objective - Exam Narrative Exam: Constitutional: no acute distress Head: NC/AT Neck: supple Lungs: clear to auscultation CV: RRR, murmur audible Abdomen: soft, non-tender, bowel sounds present Back: nontender Extremities: no edema, pulses WNL Skin: intact Neuro: no focal deficits, alert and oriented x4 - Vital Signs Vital signs: Vital Signs - 12hr 01/10/22 04:22 Temperature 97.8 F Pulse Rate 89 Respiratory 18 Rate Blood Pressure 118/72 O2 Sat by Pulse 93 Oximetry - Lab 01/10/22 07:54 01/10/22 07:54 Most recent lab results Calcium 8.6 mg/dL (8.4-10.2) 01/10/22 07:54 Medications & Allergies - Medications Allergies/Adverse Reactions: Allergies No Known Allergies Allergy (Verified 01/07/22 17:27) Home Medications: Home Medications Medication Instructions Recorded Confirmed Last Taken Type Alendronate Sodium 70 mg PO QWEEK 08/03/15 01/08/22 2 Days Ago History ~10/12/16 Amlodipine Besylate 10 mg PO QDAY 08/03/15 01/08/22 2 Days Ago History ~10/12/16 Apixaban [Eliquis] 2.5 mg PO BID 08/03/15 01/08/22 2 Days Ago History ~10/12/16 Aspirin EC [Aspirin Enteric Coated 81 mg PO QDAY 08/03/15 01/08/22 2 Days Ago History TAB] ~10/12/16 Bimatoprost [Lumigan 0.01%] 1 drop OU QDAY 08/03/15 01/08/22 2 Days Ago History ~10/12/16 Dutasteride [Avodart] 0.5 mg PO QDAY 08/03/15 01/08/22 2 Days Ago History ~10/12/16 Febuxostat (Nf) [Uloric (Nf)] 40 mg PO QDAY 08/03/15 01/08/22 2 Days Ago History ~10/12/16 Hydrochlorothiazide [HCTZ] 50 mg PO QDAY 08/03/15 01/08/22 2 Days Ago History ~10/12/16 Metoprolol [Lopressor] 50 mg PO BID 08/03/15 01/08/22 2 Days Ago History ~10/12/16 Multivitamin Tab [Multiple Vitamin 1 tab PO QDAY 08/03/15 01/08/22 2 Days Ago History TAB (Theragran)] ~10/12/16 Nitroglycerin [Nitrostat] 0.4 mg SL Q5M PRN 08/03/15 01/08/22 1 Week Ago History ~07/27/15 Psyllium Seed (with Sugar) 1 each PO QDAY 08/03/15 01/08/22 2 Days Ago History [Metamucil] ~10/12/16 Simvastatin 20 mg PO QDAY 08/03/15 01/08/22 2 Days Ago History ~10/12/16 Tamsulosin HCl 0.4 mg PO QPM 08/03/15 01/08/22 2 Days Ago History ~10/12/16 Cholecalciferol Vit D3 [Vitamin D3] 1,000 unit PO BID 08/20/15 01/08/22 2 Days Ago History ~10/12/16 Active Medications: Generic Name Dose Route Start Last Admin Trade Name Freq PRN Reason Stop Dose Admin Acetaminophen 650 mg 01/07/22 21:51 01/08/22 21:59 Acetaminophen 325 Mg Tab PO 650 mg Q4H PRN Administration Pain MILD(1-3)/Fever >100.5/DIAZ Albumin Human 25 gm 01/09/22 10:18 Albumin Human 25% (25 Gm/100 Ml) Inj IV ERIC PRN Hypotension Albuterol 2.5 mg 01/07/22 21:51 Albuterol 2.5 Mg/3 Ml Nebu IH Q3HRT PRN Shortness Of Breath Amlodipine Besylate 10 mg 01/08/22 10:00 01/09/22 09:03 Amlodipine 10 Mg Tab PO 10 mg QDAY NICK Administration Apixaban 2.5 mg 01/07/22 22:00 01/10/22 10:07 Apixaban 2.5 Mg Tab PO 2.5 mg BID NICK Administration Aspirin 81 mg 01/08/22 10:00 01/10/22 10:07 Aspirin Ec 81 Mg Tab PO 81 mg QDAY [facility] Administration Epoetin Duke-epbx 10,000 unit 01/09/22 10:18 Epoetin Duke-Epbx 10,000 Unit/1 Ml Vial IV ERIC PRN hemodialysis Famotidine 20 mg 01/10/22 10:30 Famotidine 20 Mg Tab PO DAILY [facility] Furosemide 40 mg 01/10/22 10:58 Furosemide 40 Mg/4 Ml Inj IV 01/10/22 18:01 0600,1800 [facility] Sodium Chloride 100 mls @ 999 mls/hr 01/09/22 10:18 Nacl 0.9% IV ERIC PRN Hypotension Latanoprost 1 drops 01/08/22 18:00 01/09/22 17:31 Latanoprost 0.005% Ophth Soln 2.5 Ml OU 1 drops QPM [facility] Administration Levothyroxine Sodium 100 mcg 01/10/22 06:00 01/10/22 05:52 Levothyroxine 100 Mcg Tab PO 100 mcg DAILY@0600 [facility] Administration Miscellaneous Medication 40 mg 01/08/22 10:00 Febuxostat (Nf) PO QDAY [facility] Morphine Sulfate 2 mg 01/07/22 21:51 Morphine 2 Mg/1 Ml Inj IV Q4H PRN Pain, Moderate (4-6) Morphine Sulfate 4 mg 01/07/22 21:51 Morphine 4 Mg/1 Ml Inj IV Q4H PRN Pain , Severe (7-10) Multivitamins 1 each 01/08/22 10:00 01/10/22 10:07 Multivitamins ,Therapeutic Tab PO 1 each QDAY [facility] Administration Nitroglycerin 0.4 mg 01/07/22 21:53 Nitroglycerin 0.4 Mg Tab Subl SL Q5M PRN Chest Pain Ondansetron HCl 4 mg 01/07/22 21:51 Ondansetron 4 Mg/2 Ml Inj IV Q8H PRN Nausea And Vomiting Pravastatin Sodium 40 mg 01/08/22 10:00 01/10/22 10:07 Pravastatin 40 Mg Tab PO 40 mg QDAY NICK Administration Sodium Chloride 10 ml 01/07/22 22:00 01/10/22 10:08 Sodium Chloride 0.9% 10 Ml Flush Syringe IV 10 ml BID NICK Administration Sodium Chloride 10 ml 01/07/22 21:51 Sodium Chloride 0.9% 10 Ml Flush Syringe IV PRN PRN LINE FLUSH Tamsulosin HCl 0.4 mg 01/08/22 18:00 01/09/22 17:31 Tamsulosin 0.4 Mg Cap PO 0.4 mg QPM NICK Administration
[2022-01-10 12:04] LABS: Band Neutrophils # (Manual) 0.2 K/mm3; Monocytes % (Manual) 17 % (0.0-7.3)
[2022-01-10 12:05] LABS: Platelet Estimate Consistent w Auto; Stomatocytes 2+
[2022-01-10] MEDS: TAMSULOSIN 0.4 MG CAP PO SCH (17:21)
[2022-01-10] MEDS: FUROSEMIDE 40 MG/4 ML INJ IV SCH ×2 (17:21→19:41)
[2022-01-10] MEDS: FAMOTIDINE 20 MG TAB PO SCH (17:21)
[2022-01-10] MEDS: LATANOPROST 0.005% OPHTH SOLN 2.5 ML OU SCH (19:41)
[2022-01-11] MEDS: LEVOTHYROXINE 100 MCG TAB PO SCH (06:24)
[2022-01-11] MEDS ORDERED: FUROSEMIDE 40 MG/4 ML INJ IV SCH (06:25)
--- NOTE | 2022-01-11 09:42 | Electrocardiograph Report ---
[facility] Test Date: 2022-01-07 Test Time: 21:36:29 Pat Name: ANTHONY SYKES Department: Room: A364 1 Gender: M Financial Management: SAMI : 1935 Requested By: SUSHANT HAMLIN Order Number: [id number] Reading MD: Escobar Hernandez Measurements Intervals [place] Rate: 70 P: -73 KS: 142 QRS: 10 QRSD: 82 T: 173 QT: 489 QTc: 518 Interpretive Statements Sinus or ectopic atrial rhythm Multiform ventricular premature complexes Nonspecific T abnormalities, diffuse leads Prolonged QT interval No previous ECG available for comparison Electronically Signed On 01-11-2022 9:42:18 EDT by Escobar Hernandez
--- NOTE | 2022-01-11 10:26 | Progress Note ---
Assessment and Plan Impression: * ESRD * AMS * PNA * Hypotension * Anemia of ESRD Plan: * HD q MWF * Keep MAP more than 65 * Start thiamine tablets * EPO with hemodialysis prn * strict i/os and lytes prn * Renal diet * uf as tolerated with hd * Cardiology and primary note reviewed Subjective Date of service: 01/11/22 Principal diagnosis: esrd Interval history: Resting in bed. Vitals, labs and I/os reviewed Interdisciplinary notes and consults reviewed Objective - Exam Narrative Exam: Constitutional: no acute distress Head: NC/AT Neck: supple Lungs: clear to auscultation CV: RRR, murmur audible Abdomen: soft, non-tender, bowel sounds present Back: nontender Extremities: no edema, pulses WNL Skin: intact Neuro: no focal deficits, alert and oriented x4 - Vital Signs Vital signs: Vital Signs - 12hr 01/10/22 01/10/22 01/10/22 22:24 22:51 23:44 Temperature 98.1 F Pulse Rate 224 H 115 H Respiratory 18 Rate Blood Pressure 110/70 Blood Pressure [Left] Blood Pressure [Right] O2 Sat by Pulse 95 98 Oximetry 01/11/22 01/11/22 01/11/22 04:47 05:56 06:33 Temperature 98.6 F Pulse Rate 100 H 120 H Respiratory 18 Rate Blood Pressure Blood Pressure 101/62 [Left] Blood Pressure 98/62 [Right] O2 Sat by Pulse 94 95 95 Oximetry - Lab 01/10/22 07:54 01/11/22 14:52 Most recent lab results Calcium 8.6 mg/dL (8.4-10.2) 01/10/22 07:54 Medications & Allergies - Medications Allergies/Adverse Reactions: Allergies No Known Allergies Allergy (Verified 01/07/22 17:27) Home Medications: Home Medications Medication Instructions Recorded Confirmed Last Taken Type Alendronate Sodium 70 mg PO QWEEK 08/03/15 01/08/22 2 Days Ago History ~10/12/16 Amlodipine Besylate 10 mg PO QDAY 08/03/15 01/08/22 2 Days Ago History ~10/12/16 Apixaban [Eliquis] 2.5 mg PO BID 08/03/15 01/08/22 2 Days Ago History ~10/12/16 Aspirin EC [Aspirin Enteric Coated 81 mg PO QDAY 08/03/15 01/08/22 2 Days Ago History TAB] ~10/12/16 Bimatoprost [Lumigan 0.01%] 1 drop OU QDAY 08/03/15 01/08/22 2 Days Ago History ~10/12/16 Dutasteride [Avodart] 0.5 mg PO QDAY 08/03/15 01/08/22 2 Days Ago History ~10/12/16 Febuxostat (Nf) [Uloric (Nf)] 40 mg PO QDAY 08/03/15 01/08/22 2 Days Ago History ~10/12/16 Hydrochlorothiazide [HCTZ] 50 mg PO QDAY 08/03/15 01/08/22 2 Days Ago History ~10/12/16 Metoprolol [Lopressor] 50 mg PO BID 08/03/15 01/08/22 2 Days Ago History ~10/12/16 Multivitamin Tab [Multiple Vitamin 1 tab PO QDAY 08/03/15 01/08/22 2 Days Ago History TAB (Theragran)] ~10/12/16 Nitroglycerin [Nitrostat] 0.4 mg SL Q5M PRN 08/03/15 01/08/22 1 Week Ago History ~07/27/15 Psyllium Seed (with Sugar) 1 each PO QDAY 08/03/15 01/08/22 2 Days Ago History [Metamucil] ~10/12/16 Simvastatin 20 mg PO QDAY 08/03/15 01/08/22 2 Days Ago History ~10/12/16 Tamsulosin HCl 0.4 mg PO QPM 08/03/15 01/08/22 2 Days Ago History ~10/12/16 Cholecalciferol Vit D3 [Vitamin D3] 1,000 unit PO BID 08/20/15 01/08/22 2 Days Ago History ~10/12/16 Active Medications: Generic Name Dose Route Start Last Admin Trade Name Freq PRN Reason Stop Dose Admin Acetaminophen 650 mg 01/07/22 21:51 01/08/22 21:59 Acetaminophen 325 Mg Tab PO 650 mg Q4H PRN Administration Pain MILD(1-3)/Fever >100.5/DIAZ Albumin Human 25 gm 01/09/22 10:18 Albumin Human 25% (25 Gm/100 Ml) Inj IV ERIC PRN Hypotension Albuterol 2.5 mg 01/07/22 21:51 Albuterol 2.5 Mg/3 Ml Nebu IH Q3HRT PRN Shortness Of Breath Amlodipine Besylate 10 mg 01/08/22 10:00 01/10/22 10:00 Amlodipine 10 Mg Tab PO Not Given QDAY [facility] Apixaban 2.5 mg 01/07/22 22:00 01/10/22 23:06 Apixaban 2.5 Mg Tab PO 2.5 mg BID NICK Administration Aspirin 81 mg 01/08/22 10:00 01/10/22 10:07 Aspirin Ec 81 Mg Tab PO 81 mg QDAY [facility] Administration Epoetin Duke-epbx 10,000 unit 01/09/22 10:18 Epoetin Duke-Epbx 10,000 Unit/1 Ml Vial IV ERIC PRN hemodialysis Famotidine 20 mg 01/10/22 10:30 01/10/22 17:21 Famotidine 20 Mg Tab PO 20 mg DAILY NICK Administration Sodium Chloride 100 mls @ 999 mls/hr 01/09/22 10:18 Nacl 0.9% IV ERIC PRN Hypotension Latanoprost 1 drops 01/08/22 18:00 01/10/22 19:41 Latanoprost 0.005% Ophth Soln 2.5 Ml OU 1 drops QPM [facility] Administration Levothyroxine Sodium 100 mcg 01/10/22 06:00 01/11/22 06:24 Levothyroxine 100 Mcg Tab PO 100 mcg DAILY@0600 [facility] Administration Miscellaneous Medication 40 mg 01/08/22 10:00 Febuxostat (Nf) PO QDAY [facility] Morphine Sulfate 2 mg 01/07/22 21:51 Morphine 2 Mg/1 Ml Inj IV Q4H PRN Pain, Moderate (4-6) Morphine Sulfate 4 mg 01/07/22 21:51 Morphine 4 Mg/1 Ml Inj IV Q4H PRN Pain , Severe (7-10) Multivitamins 1 each 01/08/22 10:00 01/10/22 10:07 Multivitamins ,Therapeutic Tab PO 1 each QDAY [facility] Administration Nitroglycerin 0.4 mg 01/07/22 21:53 Nitroglycerin 0.4 Mg Tab Subl SL Q5M PRN Chest Pain Ondansetron HCl 4 mg 01/07/22 21:51 Ondansetron 4 Mg/2 Ml Inj IV Q8H PRN Nausea And Vomiting Pravastatin Sodium 40 mg 01/08/22 10:00 01/10/22 10:07 Pravastatin 40 Mg Tab PO 40 mg QDAY NICK Administration Sodium Chloride 10 ml 01/07/22 22:00 01/10/22 23:06 Sodium Chloride 0.9% 10 Ml Flush Syringe IV 10 ml BID NICK Administration Sodium Chloride 10 ml 01/07/22 21:51 Sodium Chloride 0.9% 10 Ml Flush Syringe IV PRN PRN LINE FLUSH Tamsulosin HCl 0.4 mg 01/08/22 18:00 01/10/22 17:21 Tamsulosin 0.4 Mg Cap PO 0.4 mg QPM NICK Administration
[2022-01-11] MEDS: amLODIPine 10 MG TAB PO SCH (11:34)
[2022-01-11] MEDS: MULTIVITAMINS ,THERAPEUTIC TAB PO SCH (11:35)
[2022-01-11] MEDS: FAMOTIDINE 20 MG TAB PO SCH (11:36)
[2022-01-11] MEDS: ASPIRIN EC 81 MG TAB PO SCH (11:36)
[2022-01-11] MEDS: APIXABAN 2.5 MG TAB PO SCH ×2 (11:37→22:22)
[2022-01-11] MEDS: PRAVASTATIN 40 MG TAB PO SCH (11:37)
--- NOTE | 2022-01-11 13:14 | Progress Note ---
Assessment and Plan - Patient Problems (1) Paroxysmal atrial fibrillation Current Visit: Yes Status: Acute Plan to address problem: Continue current management, with rhythm control therapy and oral anticoagulation. Echocardiogram on this presentation shows moderate left ventricular systolic dysfunction, ejection fraction 35 to 40%. Subjective Date of service: 01/11/22 Principal diagnosis: End-stage renal failure, paroxysmal atrial fibrillation Interval history: Patient is resting comfortably in bed, no acute distress. On telemetry monitoring he has atrial fibrillation with ventricular rates in the low 100s. Objective Vital Signs Temp Pulse Resp BP BP BP Pulse Ox 01/11/22 11:34 98/52 01/11/22 10:06 98.5 F 66 24 96/59 93 01/11/22 06:33 120 H 98/62 95 01/11/22 05:56 95 01/11/22 04:47 98.6 F 100 H 18 101/62 94 01/10/22 23:44 98 01/10/22 22:51 115 H 01/10/22 22:24 98.1 F 224 H 18 110/70 95 01/10/22 19:37 98 01/10/22 17:00 99.2 F 63 24 95/58 98 01/10/22 16:50 98.2 F 87 20 103/76 01/10/22 16:45 98 H 103/62 01/10/22 16:30 75 115/81 01/10/22 16:15 92 H 110/76 01/10/22 16:00 99 H 96/65 01/10/22 15:45 78 89/63 01/10/22 15:30 79 88/64 01/10/22 15:15 115 H 95/67 01/10/22 15:00 58 L 92/56 01/10/22 14:45 56 L 94/62 01/10/22 14:30 87 102/65 01/10/22 14:15 64 89/60 01/10/22 14:10 90 106/58 01/10/22 14:00 97.2 F L 63 128 H 103/72 Pulse Ox 01/11/22 11:34 01/11/22 10:06 01/11/22 06:33 01/11/22 05:56 01/11/22 04:47 01/10/22 23:44 01/10/22 22:51 01/10/22 22:24 01/10/22 19:37 01/10/22 17:00 01/10/22 16:50 98 01/10/22 16:45 01/10/22 16:30 01/10/22 16:15 01/10/22 16:00 01/10/22 15:45 01/10/22 15:30 01/10/22 15:15 01/10/22 15:00 01/10/22 14:45 01/10/22 14:30 01/10/22 14:15 01/10/22 14:10 01/10/22 14:00 98 - Physical Examination General: No Apparent Distress HEENT: Positive: PERRL Neck: Positive: neck supple Cardiac: Positive: irregularly irregular Lungs: Positive: Decreased Breath Sounds Neuro: Positive: Weakness (Generalized lethargy) Abdomen: Positive: Soft Skin: Positive: Clear Extremities: Absent: edema - EKG Sinus rhythms and dysrhythmias: sinus rhythm (Possible sinus rhythm with PACs)
--- NOTE | 2022-01-11 14:34 | Progress Note ---
Assessment and Plan Assessment and plan: #Acute metabolic encephalopathyresolved #Lactic acidosisstable #Community-acquired pneumonia secondary to gram-negative rods versus atypical bacteriaruled out Unremarkable CT head noncontrast. Lactic acid 2.7. Continuing to trend lactic acid antibiotics discontinued due to low suspicion for pneumonia (Rocephin 2 g daily and p.o. azithromycin 500 mg daily). Status post IV fluid resuscitation. lactic acid continues to be elevated, will give 500cc bolus Blood cultures NGTD x 72 hours #ESRD on hemodialysis -Access: Permacath in upper right chest -Outpatient schedule: Limited further -Nephrology following; appreciate recs. -Renally dose medications and avoid nephrotoxic drugs. Renal diet -continue HD on MWF #Elevated troponin #Systolic heart failure - TTE shows EF of 35-40%; chronicity unknown elevated troponin likely secondary to end-stage renal disease Cardiology following, assistance appreciated #L Pleural effusion significant L sided pleural effusion seen on TTE - patient currently on RA, will order thoracenentesis #Hypertension - home medications: Metoprolol tartrate 100 mg twice daily, hydrochlorothiazide - current medications: Currently holding as the patient's blood pressure soft - SBP goal <160 and DBP goal <90 while inpatient - continue to monitor #Suspected COVID-19 infectionruled out #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 status. Only utilize PEG tube for po meds and nutrition. #Advanced care planning -Disease education conducted, care plan discussed, diagnoses discussed, prognosis discussed, and patient and son Sukhwinder Snow acknowledges understanding with care plan -Time: +30 min #Discharge planning - Patient is pending resolution of lactic acidosis and thoracentesis, likely to be discharged tomorrow. - Case management has been made aware. History Interval history: No acute events overnight. Patient reports no pain or discomfort at this time. We will continue current care plan. Hospitalist Physical - Physical exam Narrative exam: GENERAL: Well-developed well-nourished. In no acute distress. HEENT: Edentulous NECK: Supple. CHEST/LUNGS: R chest permacath. CTAB on room air HEART/CARDIOVASCULAR: RRR. No murmur, rubs or gallops appreciated. ABDOMEN: +BS. NT/ND. SKIN: No rashes noted. NEURO: L sided hemiparesis. No other focal deficits noted. MUSCULOSKELETAL: No joint effusion EXTREMITIES: No cyanosis, clubbing or edema. PSYCH: Cooperative. - Constitutional Vitals: Temp Pulse Resp BP Pulse Ox 98.5 F 66 24 98/52 93 01/11/22 10:06 01/11/22 10:06 01/11/22 10:06 01/11/22 11:34 01/11/22 10:06 General appearance: Present: no acute distress, well-nourished, other (Cognitive deficits secondary to recent hemorrhagic CVA) HEART Score - HEART Score Troponin: Troponin T 0.289 ng/mL (0.00-0.029) H* 01/07/22 18:30 Results - Labs CBC & Chem 7: 01/10/22 07:54 01/12/22 08:02 Labs: Laboratory Last Values WBC 8.8 K/mm3 (4.5-11.0) 01/10/22 07:54 RBC 3.96 M/mm3 (3.65-5.03) 01/10/22 07:54 Hgb 11.5 gm/dl (11.8-15.2) L 01/10/22 07:54 Hct 36.2 % (35.5-45.6) 01/10/22 07:54 MCV 91 fl (84-94) 01/10/22 07:54 MCH 29 pg (28-32) 01/10/22 07:54 MCHC 32 % (32-34) 01/10/22 07:54 RDW 18.9 % (13.2-15.2) H 01/10/22 07:54 Plt Count 100 K/mm3 (140-440) L 01/10/22 07:54 [place] % (Auto) Rare/Endangered Species Specialist 01/10/22 07:54 Add Manual Diff Complete 01/10/22 07:54 Total Counted 100 01/09/22 07:49 Seg Neuts % (Manual) 62 % (40.0-70.0) 01/10/22 07:54 Band Neutrophils % 3 % 01/10/22 07:54 Lymphocytes % (Manual) 17 % (13.4-35.0) 01/10/22 07:54 Reactive Lymphs % (Man) 1.0 % 01/09/22 07:49 Monocytes % (Manual) 17 % (0.0-7.3) H 01/10/22 07:54 Eosinophils % (Manual) 3.0 % (0.0-4.3) 01/09/22 07:49 Basophils % (Manual) 0 % (0.0-1.8) 01/09/22 07:49 Metamyelocytes % 1 % 01/10/22 07:54 Myelocytes % 1.0 % 01/09/22 07:49 Promyelocytes % 0 % 01/09/22 07:49 Blast Cells % 0 % 01/09/22 07:49 Nucleated RBC % Not Reportable 01/10/22 07:54 Seg Neutrophils # Man 5.4 K/mm3 (1.8-7.7) 01/10/22 07:54 Band Neutrophils # 0.2 K/mm3 01/10/22 07:54 Lymphocytes # (Manual) 1.4 K/mm3 (1.2-5.4) 01/10/22 07:54 Abs React Lymphs (Man) 0.1 K/mm3 01/09/22 07:49 Monocytes # (Manual) 1.4 K/mm3 (0.0-0.8) H 01/10/22 07:54 Eosinophils # (Manual) 0.3 K/mm3 (0.0-0.4) 01/09/22 07:49 Basophils # (Manual) 0.0 K/mm3 (0.0-0.1) 01/09/22 07:49 Metamyelocytes # 0.0 K/mm3 01/10/22 07:54 Myelocytes # 0.1 K/mm3 01/09/22 07:49 Promyelocytes # 0.0 K/mm3 01/09/22 07:49 Blast Cells # 0.0 K/mm3 01/09/22 07:49 WBC Morphology Not Reportable 01/10/22 07:54 Hypersegmented Neuts Not Reportable 01/10/22 07:54 Hyposegmented Neuts Not Reportable 01/10/22 07:54 Hypogranular Neuts Not Reportable 01/10/22 07:54 Smudge Cells Not Reportable 01/10/22 07:54 Toxic Granulation Not Reportable 01/10/22 07:54 Toxic Vacuolation Not Reportable 01/10/22 07:54 Dohle Bodies Not Reportable 01/10/22 07:54 Pelger-Huet Anomaly Not Reportable 01/10/22 07:54 Donna Rods Not Reportable 01/10/22 07:54 Platelet Estimate Consistent w auto 01/10/22 07:54 Clumped Platelets Not Reportable 01/10/22 07:54 Plt Clumps, EDTA Not Reportable 01/10/22 07:54 Large Platelets Not Reportable 01/10/22 07:54 Giant Platelets Not Reportable 01/10/22 07:54 Platelet Satelliting Not Reportable 01/10/22 07:54 Plt Morphology Comment Not Reportable 01/10/22 07:54 RBC Morphology Not Reportable 01/10/22 07:54 Dimorphic RBCs Not Reportable 01/10/22 07:54 Polychromasia Not Reportable 01/10/22 07:54 Hypochromasia Not Reportable 01/10/22 07:54 Poikilocytosis Not Reportable 01/10/22 07:54 Anisocytosis Not Reportable 01/10/22 07:54 Microcytosis Not Reportable 01/10/22 07:54 Macrocytosis Not Reportable 01/10/22 07:54 Spherocytes Not Reportable 01/10/22 07:54 Pappenheimer Bodies Not Reportable 01/10/22 07:54 Sickle Cells Not Reportable 01/10/22 07:54 Target Cells Not Reportable 01/10/22 07:54 Tear Drop Cells Not Reportable 01/10/22 07:54 Ovalocytes Not Reportable 01/10/22 07:54 Stomatocytes 2+ 01/10/22 07:54 Helmet Cells Not Reportable 01/10/22 07:54 [place] Bodies Not Reportable 01/10/22 07:54 [place] Rings Not Reportable 01/10/22 07:54 Wilbert Cells Not Reportable 01/10/22 07:54 Bite Cells Not Reportable 01/10/22 07:54 Crenated Cell Not Reportable 01/10/22 07:54 Elliptocytes Not Reportable 01/10/22 07:54 Acanthocytes (Spur) Not Reportable 01/10/22 07:54 Rouleaux Not Reportable 01/10/22 07:54 Hemoglobin C Crystals Not Reportable 01/10/22 07:54 Schistocytes Not Reportable 01/10/22 07:54 Malaria parasites Not Reportable 01/10/22 07:54 Brian Bodies Not Reportable 01/10/22 07:54 Hem Pathologist Commnt No 01/10/22 07:54 Sodium 137 mmol/L (137-145) 01/10/22 07:54 Potassium 3.7 mmol/L (3.6-5.0) 01/10/22 07:54 Chloride 99.0 mmol/L (98-107) 01/10/22 07:54 Carbon Dioxide 27 mmol/L (22-30) 01/10/22 07:54 Anion Gap 15 mmol/L 01/10/22 07:54 BUN 38 mg/dL (9-20) H 01/10/22 07:54 Creatinine 3.7 mg/dL (0.8-1.3) H 01/10/22 07:54 Estimated GFR 19 ml/min 01/10/22 07:54 BUN/Creatinine Ratio 10 % 01/10/22 07:54 Glucose 161 mg/dL (75-100) H 01/10/22 07:54 POC Glucose 152 mg/dL (70-105) H 01/11/22 11:22 Lactic Acid 2.60 mmol/L (0.7-2.0) H* 01/11/22 07:44 Calcium 8.6 mg/dL (8.4-10.2) 01/10/22 07:54 Ammonia 17.0 umol/L (25-60) L 01/07/22 18:30 Total Creatine Kinase 34 units/L (55-170) L 01/07/22 18:30 CK-MB (CK-2) 2.1 ng/mL (0.0-4.0) 01/07/22 18:30 CK-MB (CK-2) Rel Index 6.1 (0-4) H 01/07/22 18:30 Troponin T 0.289 ng/mL (0.00-0.029) H* 01/07/22 18:30 NT-Pro-B Natriuret Pep 2602 pg/mL (0-900) H 01/10/22 07:54 Triglycerides 247 mg/dL (2-149) H 01/07/22 18:30 Cholesterol 83 mg/dL (50-199) 01/07/22 18:30 LDL Cholesterol Direct 9 mg/dL (50-130) L 01/07/22 18:30 HDL Cholesterol 22 mg/dL (40-59) L 01/07/22 18:30 Cholesterol/HDL Ratio 3.77 % 01/07/22 18:30 TSH 158.100 mlU/mL (0.270-4.200) H 01/09/22 07:49 Free T4 0.50 ng/dL (0.76-1.46) L 01/09/22 07:49 Urine Color Vickie (Yellow) 01/09/22 Unknown Urine Turbidity Cloudy (Clear) 01/09/22 Unknown Urine pH 6.0 (5.0-7.0) 01/09/22 Unknown Ur Specific [place] 1.020 (1.003-1.030) 01/09/22 Unknown Urine Protein >2000 mg dl mg/dL (Negative) 01/09/22 Unknown Urine Glucose (UA) Negative mg/dL (Negative) 01/09/22 Unknown Urine Ketones Negative mg/dL (Negative) 01/09/22 Unknown Urine Blood Moderate (Negative) A 01/09/22 Unknown Urine Nitrite Negative (Negative) 01/09/22 Unknown Urine Bilirubin Negative (Negative) 01/09/22 Unknown Urine Urobilinogen < 2.0 mg/dL (<2.0) 01/09/22 Unknown Ur Leukocyte Esterase Moderate (Negative) 01/09/22 Unknown SARS-CoV-2 (PCR) Negative (Negative) 01/08/22 10:30 Hepatitis A IgM Ab Non-reactive (NonReactive) 01/09/22 07:49 Hep Bs Antigen Non-reactive (Negative) 01/09/22 07:49 Hep B Core IgM Ab Non-reactive (NonReactive) 01/09/22 07:49 Hepatitis C Antibody Non-reactive (NonReactive) 01/09/22 07:49 Microbiology: Microbiology 01/07/22 21:18 Peripheral/Venous Blood Culture - Preliminary NO GROWTH AFTER 72 HOURS 01/07/22 21:18 Peripheral/Venous Blood Culture - Preliminary NO GROWTH AFTER 72 HOURS Bryan/IV: Voiding Method Condom Catheter Active Medications - Current Medications Current Medications: Generic Name Dose Route Start Last Admin Trade Name Freq PRN Reason Stop Dose Admin Acetaminophen 650 mg 01/07/22 21:51 01/08/22 21:59 Acetaminophen 325 Mg Tab PO 650 mg Q4H PRN Administration Pain MILD(1-3)/Fever >100.5/DIAZ Albumin Human 25 gm 01/09/22 10:18 Albumin Human 25% (25 Gm/100 Ml) Inj IV ERIC PRN Hypotension Albuterol 2.5 mg 01/07/22 21:51 Albuterol 2.5 Mg/3 Ml Nebu IH Q3HRT PRN Shortness Of Breath Amlodipine Besylate 10 mg 01/08/22 10:00 01/11/22 11:34 Amlodipine 10 Mg Tab PO 10 mg QDAY NICK Administration Apixaban 2.5 mg 01/07/22 22:00 01/11/22 11:37 Apixaban 2.5 Mg Tab PO 2.5 mg BID NICK Administration Aspirin 81 mg 01/08/22 10:00 01/11/22 11:36 Aspirin Ec 81 Mg Tab PO 81 mg QDAY NICK Administration Epoetin Duke-epbx 10,000 unit 01/09/22 10:18 Epoetin Duke-Epbx 10,000 Unit/1 Ml Vial IV ERIC PRN hemodialysis Famotidine 20 mg 01/10/22 10:30 01/11/22 11:36 Famotidine 20 Mg Tab PO 20 mg DAILY NICK Administration Sodium Chloride 100 mls @ 999 mls/hr 01/09/22 10:18 Nacl 0.9% IV ERIC PRN Hypotension Latanoprost 1 drops 01/08/22 18:00 01/10/22 19:41 Latanoprost 0.005% Ophth Soln 2.5 Ml OU 1 drops QPM NICK Administration Levothyroxine Sodium 100 mcg 01/10/22 06:00 01/11/22 06:24 Levothyroxine 100 Mcg Tab PO 100 mcg DAILY@0600 NICK Administration Miscellaneous Medication 40 mg 01/08/22 10:00 Febuxostat (Nf) PO QDAY NICK Morphine Sulfate 2 mg 01/07/22 21:51 Morphine 2 Mg/1 Ml Inj IV Q4H PRN Pain, Moderate (4-6) Morphine Sulfate 4 mg 01/07/22 21:51 Morphine 4 Mg/1 Ml Inj IV Q4H PRN Pain , Severe (7-10) Multivitamins 1 each 01/08/22 10:00 01/11/22 11:35 Multivitamins ,Therapeutic Tab PO 1 each QDAY NICK Administration Nitroglycerin 0.4 mg 01/07/22 21:53 Nitroglycerin 0.4 Mg Tab Subl SL Q5M PRN Chest Pain Ondansetron HCl 4 mg 01/07/22 21:51 Ondansetron 4 Mg/2 Ml Inj IV Q8H PRN Nausea And Vomiting Pravastatin Sodium 40 mg 01/08/22 10:00 01/11/22 11:37 Pravastatin 40 Mg Tab PO 40 mg QDAY NICK Administration Sodium Chloride 10 ml 01/07/22 22:00 01/11/22 11:38 Sodium Chloride 0.9% 10 Ml Flush Syringe IV 10 ml BID NICK Administration Sodium Chloride 10 ml 01/07/22 21:51 Sodium Chloride 0.9% 10 Ml Flush Syringe IV PRN PRN LINE FLUSH Tamsulosin HCl 0.4 mg 01/08/22 18:00 01/10/22 17:21 Tamsulosin 0.4 Mg Cap PO 0.4 mg QPM NICK Administration Nutrition/Malnutrition Assess - Dietary Evaluation Nutrition/Malnutrition Findings: Nutrition Notes Start: 01/09/22 14:25 Freq: Status: Active Protocol: Document 01/09/22 14:25 [facility] (Rec: 01/09/22 14:40 [facility] [id number]) Nutrition Notes Need for Assessment generated from: MD Order Initial or Follow up Assessment Current Diagnosis CKD (stage V CKD),Hypertension ,Stroke Other Pertinent Diagnosis AMS, HIV/AIDS Current Diet NPO Labs/Tests K 3.5 Cl 97.8 BUN 31 Cr 3.5 Glu 118 Pertinent Medications Levothyroxine IV MVI KCl Pravastatin Height 5 ft 8 in Weight 81.3 kg [place] Body Weight (kg) 70.00 BMI 27.2 Intake Prior to Admission Good Weight change and time frame No unintentional 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 Weight Status Overweight Subjective/Other Information RD consult for write/manage tube feeding. Pt currently NPO with AMS and CVA residuals. Pt consumed 50% of Breakfast and Lunch 01/08 per physical assessment. Pt has PEG tube per Progress Note 01/08. Pt abdomen soft, non-tender, non-distended w/ BS+ per H&P Burn Absent Trauma Absent GI Symptoms None Difficulty In Chewing Skin Integrity/Comment Stage II pressure ulcer ( Sacrum) Current % PO Other Minimum of two criteria No Fluid Accumulation N/A Reduced Signal Wirer Strength N/A (non-severe) Protein-Calorie Malnutrition N\A #1 Nutrition Diagnosis Swallowing difficulty Etiology CVA residuals As Evidenced by Signs and Symptoms Pt has PEG tube and currently NPO. Is patient on ventilator? No Is Patient Ambulatory and/or Out of Bed No REE-([facility]-confined to bed) [phone] Calculation Used for Recommendations [facility] Additional Notes 1.25-1.5g/kg PRO ABW 102-122g PRO q day 1000-1500mL q day or per MD Nutrition Intervention Nutrition Support: Initiate Nepro @ 15mL/hr and increase by 10mL q 6 hr to goal rate of 45mL/hr x 24hrs providing 1944kcal, 88g PRO, 785mL FW. Flush with 200mL q 4hr. Kcal 1,944 Protein (gm) 88 Fluid (mL) 785 Goal #1 Initiate tube feed within 24- 48hrs Goal #2 Pt to tolerate tube feeds. Goal #3 Tube feeds to provide >75% of estimated energy/protein needs through enteral nutrition. Follow-Up By: 01/12/22 Additional Comments Monitor TF rate, tolerance, and pt BM.
[2022-01-11 15:33] LABS: Calcium 8.4 mg/dL (8.4-10.2)
[2022-01-11] MEDS: THIAMINE 100 MG TAB PO SCH (18:48)
[2022-01-11] MEDS: TAMSULOSIN 0.4 MG CAP PO SCH (18:48)
[2022-01-11] MEDS: LATANOPROST 0.005% OPHTH SOLN 2.5 ML OU SCH (20:25)
[2022-01-12] MEDS: SODIUM CHLORIDE 0.9% 500 ML 500 ML IV SCH ×2 (00:43→18:03)
[2022-01-12] MEDS: LEVOTHYROXINE 100 MCG TAB PO SCH (05:06)
[2022-01-12] MEDS: MIDODRINE 10 MG TAB PO SCH ×3 (08:00→16:50)
[2022-01-12 09:05] LABS: Calcium 8.6 mg/dL (8.4-10.2)
--- NOTE | 2022-01-12 10:12 | XRay Report ---
CHEST 1 VIEW 01/12/2022 9:02 AM INDICATION / CLINICAL INFORMATION: fluid in lungs. COMPARISON: Chest x-ray on 01/07/2022 FINDINGS: SUPPORT DEVICES: Stable position of port and central venous catheter. HEART / MEDIASTINUM: Stable. LUNGS / PLEURA: Stable diffuse opacities in the left lung. No pneumothorax. ADDITIONAL FINDINGS: No significant additional findings. IMPRESSION: 1. No adverse change from the prior exam. Signer Name: Clint Alvarado MD Signed: 01/12/2022 10:07 AM Workstation Name: [id number]
--- NOTE | 2022-01-12 12:57 | Event Note ---
Date: 01/12/22 I contacted the [facility] patient afton to receive further information about Mr. Weiss. He has a history of lymphoma, atrial fibrillation, pretension and sacral decubitus ulcer. He was recently discharged from [facility] on December 24 at the time he was treated for possible infected sacral decubitus ulcer and pneumonia. He was discharged with a prescription for Flagyl and Levaquin which I restarted. Plan is for discharge later today after dialysis and possible thoracentesis.
[2022-01-12] MEDS ORDERED: levoFLOXacin 500 MG TAB PO SCH (14:00)
--- NOTE | 2022-01-12 14:22 | Progress Note ---
Assessment and Plan - Patient Problems (1) Paroxysmal atrial fibrillation Current Visit: Yes Status: Acute Plan to address problem: Echocardiogram on this presentation shows moderate left ventricular systolic dysfunction, ejection fraction 35 to 40%. Continue rate control management, and oral anticoagulation should be resumed as tolerated. Subjective Date of service: 01/12/22 Principal diagnosis: esrd Interval history: Patient is resting comfortably in bed, no acute distress. 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 Objective Vital Signs Temp Pulse Resp BP Pulse Ox Pulse Ox 01/12/22 12:09 97.9 F 70 16 115/70 99 01/12/22 12:00 77 125/90 01/12/22 11:45 61 119/86 01/12/22 11:30 60 114/80 01/12/22 11:15 68 127/73 01/12/22 11:00 57 L 119/83 01/12/22 10:45 89 134/66 01/12/22 10:30 91 H 128/92 01/12/22 10:15 67 102/87 01/12/22 10:00 119 H 105/84 01/12/22 09:45 74 104/74 01/12/22 09:30 71 98/66 01/12/22 09:15 80 111/70 01/12/22 09:07 96 01/12/22 09:00 63 98/69 01/12/22 08:45 98.0 F 63 16 98/69 99 01/12/22 07:40 97 01/11/22 22:00 91 01/11/22 20:57 59 L 20 102/65 93 01/11/22 19:09 75 20 92/64 90 01/11/22 15:18 98.6 F 83 22 70/44 91 - Physical Examination General: No Apparent Distress, Cachectic HEENT: Positive: PERRL Neck: Positive: neck supple Cardiac: Positive: irregularly irregular Lungs: Positive: Decreased Breath Sounds Neuro: Positive: Weakness (Generalized lethargy) Abdomen: Positive: Soft Skin: Positive: Clear Extremities: Absent: edema - Labs and Meds Cardiac Enzymes 01/12/22 Range/Units 08:02 Lactate Dehydrogenase 336 H (91-180) units/L Comprehensive Metabolic Panel 01/11/22 01/12/22 Range/Units 14:52 08:02 Sodium 137 135 L (137-145) mmol/L Potassium 3.6 3.4 L (3.6-5.0) mmol/L Chloride 97.5 L 96.3 L (98-107) mmol/L Carbon Dioxide 25 30 (22-30) mmol/L BUN 33 H 39 H (9-20) mg/dL Creatinine 3.2 H 3.3 H (0.8-1.3) mg/dL Glucose 144 H 121 H (75-100) mg/dL Calcium 8.4 8.6 (8.4-10.2) mg/dL Total Protein 6.7 (6.3-8.2) g/dL - EKG Sinus rhythms and dysrhythmias: sinus rhythm (Possible sinus rhythm with PACs)
[2022-01-12] MEDS: PRAVASTATIN 40 MG TAB PO SCH (14:32)
[2022-01-12] MEDS: APIXABAN 2.5 MG TAB PO SCH ×2 (14:32→22:41)
[2022-01-12] MEDS: ASPIRIN EC 81 MG TAB PO SCH (14:32)
[2022-01-12] MEDS: MULTIVITAMINS ,THERAPEUTIC TAB PO SCH (14:32)
[2022-01-12] MEDS: FAMOTIDINE 20 MG TAB PO SCH (14:32)
[2022-01-12] MEDS: THIAMINE 100 MG TAB PO SCH (14:32)
[2022-01-12] MEDS: metroNIDAZOLE 500 MG TAB PO SCH ×2 (14:32→22:41)
--- NOTE | 2022-01-12 15:41 | Progress Note ---
Assessment and Plan Assessment and plan: #Acute metabolic encephalopathyresolved #Lactic acidosisresolved #Community-acquired pneumonia secondary to gram-negative rods versus atypical bacteriaruled out #Chronic osteomyelitis #Stage III sacral decubitus ulcer, chronic Unremarkable CT head noncontrast. lactate WNL antibiotics discontinued due to low suspicion for pneumonia (Rocephin 2 g daily and p.o. azithromycin 500 mg daily) - restarted flagyl and levaquin at home doses for chronic osteomyelitis Status post IV fluid resuscitation. lactic acid continues to be elevated, will give 500cc bolus Blood cultures NGTD x 4 days #ESRD on hemodialysis -Access: Permacath in upper right chest -Outpatient schedule: Limited further -Nephrology following; appreciate recs. -Renally dose medications and avoid nephrotoxic drugs. Renal diet -continue HD on MWF #Elevated troponin #Systolic heart failure #Atrial fibrillation with RVR - lopressor held due to soft blood pressures, will resume amiodarone at home doses - continue eliquis - TTE shows EF of 35-40%; chronicity unknown elevated troponin likely secondary to end-stage renal disease Cardiology following, assistance appreciated #L Pleural effusion significant L sided pleural effusion seen on TTE - patient currently on RA, will order thoracenentesis #history of Hypertension #Hypotension - home medications: Metoprolol tartrate 100 mg twice daily, hydrochlorothiazide - current medications: Currently holding as the patient's blood pressure low - continue midodrine - SBP goal <160 and DBP goal <90 while inpatient - continue to monitor #Suspected COVID-19 infectionruled out #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 status. Only utilize PEG tube for po meds and nutrition - speech therapy evaluated patient at family request, patient at high risk for aspiration #History of lymphoma - continue febuxostat #Advanced care planning -Disease education conducted, care plan discussed, diagnoses discussed, prognosis discussed, and patient and son Sukhwinder Snow acknowledges understanding with care plan -Time: +30 min #Discharge planning - Patient is pending thoracentesis, likely to be discharged tomorrow. - Case management has been made aware. History Interval history: No acute events overnight. Patient seen in dialysis center. He has no complaints at this time. He was updated about current care plan. Hospitalist Physical - Physical exam Narrative exam: GENERAL: Well-developed well-nourished. In no acute distress. HEENT: Edentulous NECK: Supple. CHEST/LUNGS: R chest permacath. CTAB on room air HEART/CARDIOVASCULAR: RRR. No murmur, rubs or gallops appreciated. ABDOMEN: +BS. NT/ND. SKIN: No rashes noted. NEURO: L sided hemiparesis. No other focal deficits noted. MUSCULOSKELETAL: No joint effusion EXTREMITIES: No cyanosis, clubbing or edema. PSYCH: Cooperative. - Constitutional Vitals: Temp Pulse Resp BP Pulse Ox 97.9 F 70 16 115/70 99 01/12/22 12:09 01/12/22 12:09 01/12/22 12:09 01/12/22 12:09 01/12/22 12:09 General appearance: Present: no acute distress, well-nourished, other (Cognitive deficits secondary to recent hemorrhagic CVA) HEART Score - HEART Score Troponin: Troponin T 0.289 ng/mL (0.00-0.029) H* 01/07/22 18:30 Results - Labs CBC & Chem 7: 01/10/22 07:54 01/12/22 08:02 Labs: Laboratory Last Values WBC 8.8 K/mm3 (4.5-11.0) 01/10/22 07:54 RBC 3.96 M/mm3 (3.65-5.03) 01/10/22 07:54 Hgb 11.5 gm/dl (11.8-15.2) L 01/10/22 07:54 Hct 36.2 % (35.5-45.6) 01/10/22 07:54 MCV 91 fl (84-94) 01/10/22 07:54 MCH 29 pg (28-32) 01/10/22 07:54 MCHC 32 % (32-34) 01/10/22 07:54 RDW 18.9 % (13.2-15.2) H 01/10/22 07:54 Plt Count 100 K/mm3 (140-440) L 01/10/22 07:54 [place] % (Auto) Exterminator Helper 01/10/22 07:54 Add Manual Diff Complete 01/10/22 07:54 Total Counted 100 01/09/22 07:49 Seg Neuts % (Manual) 62 % (40.0-70.0) 01/10/22 07:54 Band Neutrophils % 3 % 01/10/22 07:54 Lymphocytes % (Manual) 17 % (13.4-35.0) 01/10/22 07:54 Reactive Lymphs % (Man) 1.0 % 01/09/22 07:49 Monocytes % (Manual) 17 % (0.0-7.3) H 01/10/22 07:54 Eosinophils % (Manual) 3.0 % (0.0-4.3) 01/09/22 07:49 Basophils % (Manual) 0 % (0.0-1.8) 01/09/22 07:49 Metamyelocytes % 1 % 01/10/22 07:54 Myelocytes % 1.0 % 01/09/22 07:49 Promyelocytes % 0 % 01/09/22 07:49 Blast Cells % 0 % 01/09/22 07:49 Nucleated RBC % Not Reportable 01/10/22 07:54 Seg Neutrophils # Man 5.4 K/mm3 (1.8-7.7) 01/10/22 07:54 Band Neutrophils # 0.2 K/mm3 01/10/22 07:54 Lymphocytes # (Manual) 1.4 K/mm3 (1.2-5.4) 01/10/22 07:54 Abs React Lymphs (Man) 0.1 K/mm3 01/09/22 07:49 Monocytes # (Manual) 1.4 K/mm3 (0.0-0.8) H 01/10/22 07:54 Eosinophils # (Manual) 0.3 K/mm3 (0.0-0.4) 01/09/22 07:49 Basophils # (Manual) 0.0 K/mm3 (0.0-0.1) 01/09/22 07:49 Metamyelocytes # 0.0 K/mm3 01/10/22 07:54 Myelocytes # 0.1 K/mm3 01/09/22 07:49 Promyelocytes # 0.0 K/mm3 01/09/22 07:49 Blast Cells # 0.0 K/mm3 01/09/22 07:49 WBC Morphology Not Reportable 01/10/22 07:54 Hypersegmented Neuts Not Reportable 01/10/22 07:54 Hyposegmented Neuts Not Reportable 01/10/22 07:54 Hypogranular Neuts Not Reportable 01/10/22 07:54 Smudge Cells Not Reportable 01/10/22 07:54 Toxic Granulation Not Reportable 01/10/22 07:54 Toxic Vacuolation Not Reportable 01/10/22 07:54 Dohle Bodies Not Reportable 01/10/22 07:54 Pelger-Huet Anomaly Not Reportable 01/10/22 07:54 Donna Rods Not Reportable 01/10/22 07:54 Platelet Estimate Consistent w auto 01/10/22 07:54 Clumped Platelets Not Reportable 01/10/22 07:54 Plt Clumps, EDTA Not Reportable 01/10/22 07:54 Large Platelets Not Reportable 01/10/22 07:54 Giant Platelets Not Reportable 01/10/22 07:54 Platelet Satelliting Not Reportable 01/10/22 07:54 Plt Morphology Comment Not Reportable 01/10/22 07:54 RBC Morphology Not Reportable 01/10/22 07:54 Dimorphic RBCs Not Reportable 01/10/22 07:54 Polychromasia Not Reportable 01/10/22 07:54 Hypochromasia Not Reportable 01/10/22 07:54 Poikilocytosis Not Reportable 01/10/22 07:54 Anisocytosis Not Reportable 01/10/22 07:54 Microcytosis Not Reportable 01/10/22 07:54 Macrocytosis Not Reportable 01/10/22 07:54 Spherocytes Not Reportable 01/10/22 07:54 Pappenheimer Bodies Not Reportable 01/10/22 07:54 Sickle Cells Not Reportable 01/10/22 07:54 Target Cells Not Reportable 01/10/22 07:54 Tear Drop Cells Not Reportable 01/10/22 07:54 Ovalocytes Not Reportable 01/10/22 07:54 Stomatocytes 2+ 01/10/22 07:54 Helmet Cells Not Reportable 01/10/22 07:54 [place] Bodies Not Reportable 01/10/22 07:54 [place] Rings Not Reportable 01/10/22 07:54 [place] Cells Not Reportable 01/10/22 07:54 Bite Cells Not Reportable 01/10/22 07:54 Crenated Cell Not Reportable 01/10/22 07:54 Elliptocytes Not Reportable 01/10/22 07:54 Acanthocytes (Spur) Not Reportable 01/10/22 07:54 Rouleaux Not Reportable 01/10/22 07:54 Hemoglobin C Crystals Not Reportable 01/10/22 07:54 Schistocytes Not Reportable 01/10/22 07:54 Malaria parasites Not Reportable 01/10/22 07:54 Brian Bodies Not Reportable 01/10/22 07:54 Hem Pathologist Commnt No 01/10/22 07:54 Sodium 135 mmol/L (137-145) L 01/12/22 08:02 Potassium 3.4 mmol/L (3.6-5.0) L 01/12/22 08:02 Chloride 96.3 mmol/L (98-107) L 01/12/22 08:02 Carbon Dioxide 30 mmol/L (22-30) 01/12/22 08:02 Anion Gap 12 mmol/L 01/12/22 08:02 BUN 39 mg/dL (9-20) H 01/12/22 08:02 Creatinine 3.3 mg/dL (0.8-1.3) H 01/12/22 08:02 Estimated GFR 22 ml/min 01/12/22 08:02 BUN/Creatinine Ratio 12 % 01/12/22 08:02 Glucose 121 mg/dL (75-100) H 01/12/22 08:02 POC Glucose 120 mg/dL (70-105) H 01/12/22 04:57 Lactic Acid 1.70 mmol/L (0.7-2.0) 01/12/22 07:52 Calcium 8.6 mg/dL (8.4-10.2) 01/12/22 08:02 Ammonia 17.0 umol/L (25-60) L 01/07/22 18:30 Lactate Dehydrogenase 336 units/L (91-180) H 01/12/22 08:02 Total Creatine Kinase 34 units/L (55-170) L 01/07/22 18:30 CK-MB (CK-2) 2.1 ng/mL (0.0-4.0) 01/07/22 18:30 CK-MB (CK-2) Rel Index 6.1 (0-4) H 01/07/22 18:30 Troponin T 0.289 ng/mL (0.00-0.029) H* 01/07/22 18:30 NT-Pro-B Natriuret Pep 2602 pg/mL (0-900) H 01/10/22 07:54 Total Protein 6.7 g/dL (6.3-8.2) 01/12/22 08:02 Triglycerides 247 mg/dL (2-149) H 01/07/22 18:30 Cholesterol 83 mg/dL (50-199) 01/07/22 18:30 LDL Cholesterol Direct 9 mg/dL (50-130) L 01/07/22 18:30 HDL Cholesterol 22 mg/dL (40-59) L 01/07/22 18:30 Cholesterol/HDL Ratio 3.77 % 01/07/22 18:30 TSH 158.100 mlU/mL (0.270-4.200) H 01/09/22 07:49 Free T4 0.50 ng/dL (0.76-1.46) L 01/09/22 07:49 Urine Color Vickie (Yellow) 01/09/22 Unknown Urine Turbidity Cloudy (Clear) 01/09/22 Unknown Urine pH 6.0 (5.0-7.0) 01/09/22 Unknown Ur Specific [place] 1.020 (1.003-1.030) 01/09/22 Unknown Urine Protein >2000 mg dl mg/dL (Negative) 01/09/22 Unknown Urine Glucose (UA) Negative mg/dL (Negative) 01/09/22 Unknown Urine Ketones Negative mg/dL (Negative) 01/09/22 Unknown Urine Blood Moderate (Negative) A 01/09/22 Unknown Urine Nitrite Negative (Negative) 01/09/22 Unknown Urine Bilirubin Negative (Negative) 01/09/22 Unknown Urine Urobilinogen < 2.0 mg/dL (<2.0) 01/09/22 Unknown Ur Leukocyte Esterase Moderate (Negative) 01/09/22 Unknown SARS-CoV-2 (PCR) Negative (Negative) 01/08/22 10:30 Hepatitis A IgM Ab Non-reactive (NonReactive) 01/09/22 07:49 Hep Bs Antigen Non-reactive (Negative) 01/09/22 07:49 Hep B Core IgM Ab Non-reactive (NonReactive) 01/09/22 07:49 Hepatitis C Antibody Non-reactive (NonReactive) 01/09/22 07:49 Microbiology: Microbiology 01/07/22 21:18 Peripheral/Venous Blood Culture - Preliminary NO GROWTH AFTER 4 DAYS 01/07/22 21:18 Peripheral/Venous Blood Culture - Preliminary NO GROWTH AFTER 4 DAYS Bryan/IV: Voiding Method Condom Catheter Active Medications - Current Medications Current Medications: Generic Name Dose Route Start Last Admin Trade Name Freq PRN Reason Stop Dose Admin Acetaminophen 650 mg 01/07/22 21:51 01/08/22 21:59 Acetaminophen 325 Mg Tab PO 650 mg Q4H PRN Administration Pain MILD(1-3)/Fever >100.5/DIAZ Albumin Human 25 gm 01/09/22 10:18 Albumin Human 25% (25 Gm/100 Ml) Inj IV ERIC PRN Hypotension Albuterol 2.5 mg 01/07/22 21:51 Albuterol 2.5 Mg/3 Ml Nebu IH Q3HRT PRN Shortness Of Breath Apixaban 2.5 mg 01/07/22 22:00 01/12/22 14:32 Apixaban 2.5 Mg Tab PO 2.5 mg BID NICK Administration Aspirin 81 mg 01/08/22 10:00 01/12/22 14:32 Aspirin Ec 81 Mg Tab PO 81 mg QDAY NICK Administration Epoetin Duke-epbx 10,000 unit 01/09/22 10:18 Epoetin Duke-Epbx 10,000 Unit/1 Ml Vial IV ERIC PRN hemodialysis Famotidine 20 mg 01/10/22 10:30 01/12/22 14:32 Famotidine 20 Mg Tab PO 20 mg DAILY NICK Administration Finasteride 5 mg 01/13/22 10:00 Finasteride 5 Mg Tab PO QDAY NICK Sodium Chloride 100 mls @ 999 mls/hr 01/09/22 10:18 Nacl 0.9% IV ERIC PRN Hypotension Sodium Chloride 500 mls @ 50 mls/hr 01/11/22 16:00 01/12/22 00:43 Nacl 0.9% 500 Ml IV 50 mls/hr DIRECT NICK Administration Latanoprost 1 drops 01/08/22 18:00 01/11/22 20:25 Latanoprost 0.005% Ophth Soln 2.5 Ml OU 1 drops QPM NICK Administration Levofloxacin 500 mg 01/12/22 14:00 01/12/22 14:32 Levofloxacin 500 Mg Tab PO 500 mg Q48H NICK Administration Protocol Levothyroxine Sodium 100 mcg 01/10/22 06:00 01/12/22 05:06 Levothyroxine 100 Mcg Tab PO Not Given DAILY@0600 [facility] Metronidazole 500 mg 01/12/22 14:00 01/12/22 14:32 Metronidazole 500 Mg Tab PO 500 mg Q8HR [facility] Administration Protocol Midodrine 10 mg 01/12/22 08:00 01/12/22 08:00 Midodrine 10 Mg Tab PO Not Given TID@0800,1200,1600 [facility] Miscellaneous Medication 40 mg 01/08/22 10:00 Febuxostat (Nf) PO QDAY [facility] Morphine Sulfate 2 mg 01/07/22 21:51 Morphine 2 Mg/1 Ml Inj IV Q4H PRN Pain, Moderate (4-6) Morphine Sulfate 4 mg 01/07/22 21:51 Morphine 4 Mg/1 Ml Inj IV Q4H PRN Pain , Severe (7-10) Multivitamins 1 each 01/08/22 10:00 01/12/22 14:32 Multivitamins ,Therapeutic Tab PO 1 each QDAY [facility] Administration Nitroglycerin 0.4 mg 01/07/22 21:53 Nitroglycerin 0.4 Mg Tab Subl SL Q5M PRN Chest Pain Ondansetron HCl 4 mg 01/07/22 21:51 Ondansetron 4 Mg/2 Ml Inj IV Q8H PRN Nausea And Vomiting Pravastatin Sodium 40 mg 01/08/22 10:00 01/12/22 14:32 Pravastatin 40 Mg Tab PO 40 mg QDAY NICK Administration Sodium Chloride 10 ml 01/07/22 22:00 01/12/22 14:34 Sodium Chloride 0.9% 10 Ml Flush Syringe IV 10 ml BID NICK Administration Sodium Chloride 10 ml 01/07/22 21:51 Sodium Chloride 0.9% 10 Ml Flush Syringe IV PRN PRN LINE FLUSH Tamsulosin HCl 0.4 mg 01/08/22 18:00 01/11/22 18:48 Tamsulosin 0.4 Mg Cap PO 0.4 mg QPM NICK Administration Thiamine HCl 100 mg 01/11/22 19:00 01/12/22 14:32 Thiamine 100 Mg Tab PO 100 mg QDAY NICK Administration Nutrition/Malnutrition Assess - Dietary Evaluation Nutrition/Malnutrition Findings: Nutrition Notes Start: 01/09/22 14:25 Freq: Status: Active Protocol: Document 01/09/22 14:25 GEMINI (Rec: 01/09/22 14:40 BADOULAYEMARY CRAMEN [id number]) Nutrition Notes Need for Assessment generated from: MD Order Initial or Follow up Assessment Current Diagnosis CKD (stage V CKD),Hypertension ,Stroke Other Pertinent Diagnosis AMS, HIV/AIDS Current Diet NPO Labs/Tests K 3.5 Cl 97.8 BUN 31 Cr 3.5 Glu 118 Pertinent Medications Levothyroxine IV MVI KCl Pravastatin Height 5 ft 8 in Weight 81.3 kg [place] Body Weight (kg) 70.00 BMI 27.2 Intake Prior to Admission Good Weight change and time frame No 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 Weight Status Overweight Subjective/Other Information RD consult for write/manage tube feeding. Pt currently NPO with AMS and CVA residuals. Pt consumed 50% of Breakfast and Lunch 01/08 per physical assessment. Pt has PEG tube per Progress Note 01/08. Pt abdomen soft, non-tender, non-distended w/ BS+ per H&P Burn Absent Trauma Absent GI Symptoms None Difficulty In Chewing Skin Integrity/Comment Stage II pressure ulcer ( Sacrum) Current % PO Other Minimum of two criteria No Fluid Accumulation N/A Reduced Clinical Quality Assurance Associate Strength N/A (non-severe) Protein-Calorie Malnutrition N\A #1 Nutrition Diagnosis Swallowing difficulty Etiology CVA residuals As Evidenced by Signs and Symptoms Pt has PEG tube and currently NPO. Is patient on ventilator? No Is Patient Ambulatory and/or Out of Bed No REE-([facility]-confined to bed) 1102.426 Calculation Used for Recommendations [facility] Additional Notes 1.25-1.5g/kg PRO ABW 102-122g PRO q day 1000-1500mL q day or per Nutrition Intervention Nutrition Support: Initiate Nepro @ 15mL/hr and increase by 10mL q 6 hr to goal rate of 45mL/hr x 24hrs providing 1944kcal, 88g PRO, 785mL FW. Flush with 200mL q 4hr. Kcal 1,944 Protein (gm) 88 Fluid (mL) 785 Goal #1 Initiate tube feed within 24- 48hrs Goal #2 Pt to tolerate tube feeds. Goal #3 Tube feeds to provide >75% of estimated energy/protein needs through enteral nutrition. Follow-Up By: 01/12/22 Additional Comments Monitor TF rate, tolerance, and pt BM.
--- NOTE | 2022-01-12 16:03 | Procedure Note ---
Date of procedure: 01/12/22 Pre-op diagnosis: L pleural effusion Post-op diagnosis: same Procedure: US guided L thoracentesis. Findings: See radiology report. Surgeon: KATIE MADRIGAL Estimated blood loss: none Pathology: list Specimen disposition: to lab Condition: stable Disposition: no change
--- NOTE | 2022-01-12 17:39 | XRay Report ---
CHEST 1 VIEW 01/12/2022 4:27 PM INDICATION / CLINICAL INFORMATION: post thoracentesis. COMPARISON: 01/12/2022 FINDINGS: SUPPORT DEVICES: Right Port-A-Cath tip overlies distal SVC HEART / MEDIASTINUM: No significant abnormality. LUNGS / PLEURA: Left lung opacity appears improved since prior exam. Mild increased density in right hilum. Left effusion improved post thoracentesis. No large pneumothorax ADDITIONAL FINDINGS: No signi ficant additional findings. Signer Name: Feliciano Powers MD Signed: 01/12/2022 5:35 PM Workstation Name: [employer]
--- NOTE | 2022-01-12 17:43 | Progress Note ---
Assessment and Plan Impression: * ESRD * AMS * PNA * Hypotension * Anemia of ESRD Plan: * HD q MWF * Keep MAP more than 65 * Continue thiamine tablets * EPO with hemodialysis prn * strict i/os and lytes prn * Renal diet * uf as tolerated with hd * Cardiology and primary note reviewed Subjective Date of service: 01/12/22 Principal diagnosis: esrd Interval history: Resting in bed. Vitals, labs and I/Os reviewed Interdisciplinary notes and consults reviewed Status post thoracentesis today Objective - Exam Narrative Exam: Constitutional: no acute distress Head: NC/AT Neck: supple Lungs: clear to auscultation CV: RRR, murmur audible Abdomen: soft, non-tender, bowel sounds present Back: nontender Extremities: no edema, pulses WNL Skin: intact Neuro: no focal deficits, alert and oriented x4 - Vital Signs Vital signs: Vital Signs - 12hr 01/12/22 01/12/22 01/12/22 07:40 08:45 09:00 Temperature 98.0 F Pulse Rate 63 63 Respiratory 16 Rate Blood Pressure 98/69 98/69 O2 Sat by Pulse 97 Oximetry O2 Sat by Pulse 99 Oximetry [ Anterior Bilateral] 01/12/22 01/12/22 01/12/22 09:07 09:15 09:30 Temperature Pulse Rate 80 71 Respiratory Rate Blood Pressure 111/70 98/66 O2 Sat by Pulse 96 Oximetry O2 Sat by Pulse Oximetry [ Anterior Bilateral] 01/12/22 01/12/22 01/12/22 09:45 10:00 10:15 Temperature Pulse Rate 74 119 H 67 Respiratory Rate Blood Pressure 104/74 105/84 102/87 O2 Sat by Pulse Oximetry O2 Sat by Pulse Oximetry [ Anterior Bilateral] 01/12/22 01/12/22 01/12/22 10:30 10:45 11:00 Temperature Pulse Rate 91 H 89 57 L Respiratory Rate Blood Pressure 128/92 134/66 119/83 O2 Sat by Pulse Oximetry O2 Sat by Pulse Oximetry [ Anterior Bilateral] 01/12/22 01/12/22 01/12/22 11:15 11:30 11:45 Temperature Pulse Rate 68 60 61 Respiratory Rate Blood Pressure 127/73 114/80 119/86 O2 Sat by Pulse Oximetry O2 Sat by Pulse Oximetry [ Anterior Bilateral] 01/12/22 01/12/22 01/12/22 12:00 12:09 16:55 Temperature 97.9 F 98.0 F Pulse Rate 77 70 77 Respiratory 16 20 Rate Blood Pressure 125/90 115/70 87/53 O2 Sat by Pulse 100 Oximetry O2 Sat by Pulse 99 Oximetry [ Anterior Bilateral] 01/12/22 16:58 Temperature 98.0 F Pulse Rate Respiratory 20 Rate Blood Pressure 92/50 O2 Sat by Pulse Oximetry O2 Sat by Pulse Oximetry [ Anterior Bilateral] - Lab 01/10/22 07:54 01/12/22 08:02 Most recent lab results Calcium 8.6 mg/dL (8.4-10.2) 01/12/22 08:02 Medications & Allergies - Medications Allergies/Adverse Reactions: Allergies No Known Allergies Allergy (Verified 01/07/22 17:27) Home Medications: Home Medications Medication Instructions Recorded Confirmed Last Taken Type Alendronate Sodium 70 mg PO QWEEK 08/03/15 01/08/22 2 Days Ago History ~10/12/16 Amlodipine Besylate 10 mg PO QDAY 08/03/15 01/08/22 2 Days Ago History ~10/12/16 Apixaban [Eliquis] 2.5 mg PO BID 08/03/15 01/08/22 2 Days Ago History ~10/12/16 Aspirin EC [Aspirin Enteric Coated 81 mg PO QDAY 08/03/15 01/08/22 2 Days Ago History TAB] ~10/12/16 Bimatoprost [Lumigan 0.01%] 1 drop OU QDAY 08/03/15 01/08/22 2 Days Ago History ~10/12/16 Dutasteride [Avodart] 0.5 mg PO QDAY 08/03/15 01/08/22 2 Days Ago History ~10/12/16 Febuxostat (Nf) [Uloric (Nf)] 40 mg PO QDAY 08/03/15 01/08/22 2 Days Ago History ~10/12/16 Hydrochlorothiazide [HCTZ] 50 mg PO QDAY 08/03/15 01/08/22 2 Days Ago History ~10/12/16 Metoprolol [Lopressor] 50 mg PO BID 08/03/15 01/08/22 2 Days Ago History ~10/12/16 Multivitamin Tab [Multiple Vitamin 1 tab PO QDAY 08/03/15 01/08/22 2 Days Ago History TAB (Theragran)] ~10/12/16 Nitroglycerin [Nitrostat] 0.4 mg SL Q5M PRN 08/03/15 01/08/22 1 Week Ago History ~07/27/15 Psyllium Seed (with Sugar) 1 each PO QDAY 08/03/15 01/08/22 2 Days Ago History [Metamucil] ~10/12/16 Simvastatin 20 mg PO QDAY 08/03/15 01/08/22 2 Days Ago History ~10/12/16 Tamsulosin HCl 0.4 mg PO QPM 08/03/15 01/08/22 2 Days Ago History ~10/12/16 Cholecalciferol Vit D3 [Vitamin D3] 1,000 unit PO BID 08/20/15 01/08/22 2 Days Ago History ~10/12/16 Active Medications: Generic Name Dose Route Start Last Admin Trade Name Freq PRN Reason Stop Dose Admin Acetaminophen 650 mg 01/07/22 21:51 01/08/22 21:59 Acetaminophen 325 Mg Tab PO 650 mg Q4H PRN Administration Pain MILD(1-3)/Fever >100.5/DIAZ Albumin Human 25 gm 01/09/22 10:18 Albumin Human 25% (25 Gm/100 Ml) Inj IV ERIC PRN Hypotension Albuterol 2.5 mg 01/07/22 21:51 Albuterol 2.5 Mg/3 Ml Nebu IH Q3HRT PRN Shortness Of Breath Apixaban 2.5 mg 01/07/22 22:00 01/12/22 14:32 Apixaban 2.5 Mg Tab PO 2.5 mg BID NIKC Administration Aspirin 81 mg 01/08/22 10:00 01/12/22 14:32 Aspirin Ec 81 Mg Tab PO 81 mg QDAY NICK Administration Epoetin [facility]-epbx 10,000 unit 01/09/22 10:18 Epoetin [facility]-Epbx 10,000 Unit/1 Ml Vial IV ERIC PRN hemodialysis Famotidine 20 mg 01/10/22 10:30 01/12/22 14:32 Famotidine 20 Mg Tab PO 20 mg DAILY NICK Administration Finasteride 5 mg 01/13/22 10:00 Finasteride 5 Mg Tab PO QDAY NICK Sodium Chloride 100 mls @ 999 mls/hr 01/09/22 10:18 Nacl 0.9% IV ERIC PRN Hypotension Sodium Chloride 500 mls @ 50 mls/hr 01/11/22 16:00 01/12/22 00:43 Nacl 0.9% 500 Ml IV 50 mls/hr DIRECT NICK Administration Latanoprost 1 drops 01/08/22 18:00 01/11/22 20:25 Latanoprost 0.005% Ophth Soln 2.5 Ml OU 1 drops QPM NICK Administration Levofloxacin 500 mg 01/12/22 14:00 01/12/22 14:32 Levofloxacin 500 Mg Tab PO 500 mg Q48H [facility] Administration Protocol Levothyroxine Sodium 100 mcg 01/10/22 06:00 01/12/22 05:06 Levothyroxine 100 Mcg Tab PO Not Given DAILY@0600 [facility] Metronidazole 500 mg 01/12/22 14:00 01/12/22 14:32 Metronidazole 500 Mg Tab PO 500 mg Q8HR NICK Administration Protocol Midodrine 10 mg 01/12/22 08:00 01/12/22 16:50 Midodrine 10 Mg Tab PO Not Given TID@0800,1200,1600 [facility] Miscellaneous Medication 40 mg 01/08/22 10:00 Febuxostat (Nf) PO QDAY [facility] Morphine Sulfate 2 mg 01/07/22 21:51 Morphine 2 Mg/1 Ml Inj IV Q4H PRN Pain, Moderate (4-6) Morphine Sulfate 4 mg 01/07/22 21:51 Morphine 4 Mg/1 Ml Inj IV Q4H PRN Pain , Severe (7-10) Multivitamins 1 each 01/08/22 10:00 01/12/22 14:32 Multivitamins ,Therapeutic Tab PO 1 each QDAY [facility] Administration Nitroglycerin 0.4 mg 01/07/22 21:53 Nitroglycerin 0.4 Mg Tab Subl SL Q5M PRN Chest Pain Ondansetron HCl 4 mg 01/07/22 21:51 Ondansetron 4 Mg/2 Ml Inj IV Q8H PRN Nausea And Vomiting Pravastatin Sodium 40 mg 01/08/22 10:00 01/12/22 14:32 Pravastatin 40 Mg Tab PO 40 mg QDAY NICK Administration Sodium Chloride 10 ml 01/07/22 22:00 01/12/22 14:34 Sodium Chloride 0.9% 10 Ml Flush Syringe IV 10 ml BID NICK Administration Sodium Chloride 10 ml 01/07/22 21:51 Sodium Chloride 0.9% 10 Ml Flush Syringe IV PRN PRN LINE FLUSH Tamsulosin HCl 0.4 mg 01/08/22 18:00 01/11/22 18:48 Tamsulosin 0.4 Mg Cap PO 0.4 mg QPM NICK Administration Thiamine HCl 100 mg 01/11/22 19:00 01/12/22 14:32 Thiamine 100 Mg Tab PO 100 mg QDAY NICK Administration
[2022-01-12] MEDS: TAMSULOSIN 0.4 MG CAP PO SCH (18:03)
[2022-01-12] MEDS: LATANOPROST 0.005% OPHTH SOLN 2.5 ML OU SCH (18:10)
[2022-01-13] MEDS: metroNIDAZOLE 500 MG TAB PO SCH (06:01)
[2022-01-13] MEDS: LEVOTHYROXINE 100 MCG TAB PO SCH (06:01)
--- NOTE | 2022-01-13 07:56 | Ultrasound Report ---
Ultrasound-guided thoracentesis HISTORY: L pleural effusion. COMPARISON: Chest x-ray from earlier today PROCEDURE: The risks (including but not limited to bleeding, infection, and pneumothorax) and benefi ts were explained to the patient and informed consent was obtained. A time out procedure was perform ed. Ultrasound was used to evaluate the left-sided pleural effusion and locate the optimal site for needl e entry. Once the skin was marked, the procedure site was prepped and draped in the usual sterile fa shion and lidocaine was used for local anesthesia. A skin olaf was made and a 6-Ukrainian thoracentesis catheter was placed. The patient was monitored closely throughout the procedure, and a total of 130 0 mL of thin bloody fluid was aspirated. Samples were sent to the lab for further evaluation per the primary clinicians orders. The patient tolerated the procedure well with no complications. A post-procedure chest x-ray was imm ediately ordered. IMPRESSION: Successful thoracentesis as above with a total of 1300 mL of thin bloody fluid aspirated. Signer Name: Mulugeta Cano MD Signed: 01/13/2022 7:52 AM Workstation Name: [id number]
--- NOTE | 2022-01-13 08:02 | Discharge Summary ---
Providers - Providers Date of Admission: 01/07/22 20:34 Date of discharge: 01/13/22 Attending physician: LIO BORJA MD 01/07/22 21:51 Consult to Physician [CONS] Routine Comment: Consulting Provider: OLU MIN Physician Instructions: Reason For Exam: esrd 01/07/22 21:56 Consult to Physician [CONS] Routine Comment: Consulting Provider: AARON STRATTON Physician Instructions: Reason For Exam: Elevated troponin 01/08/22 13:26 Consult to Dietitian/Nutrition [CONS] Routine Physician Instructions: Reason For Exam: Reason for Consult: Write/Manage Tube Feeding 01/11/22 16:00 Speech Therapy Evaluation and Treat [CONS] Routine Reason For Exam: evaluate swallowing Primary care physician: BRYAN UMANA Hospitalization Reason for admission: acute encephalopathy Condition: Fair Hospital course: Patient is a 86-year-old male with history of CVA, lymphoma, and ESRD on HD who presented after dialysis with altered mental status. Initial CT scan showed no acute intracranial abnormality. Chest x-ray showed diffuse opacities with left greater than right pleural effusions. Cardiology was consulted as well as nephrology. Cardiogram showed left ventricular ejection fraction of 35 to 40% and mild pulmonary hypertension. Patient had no previous history of heart failure. Goal-directed medical therapy unable to be started due to hypotension. He was started on midodrine 10 mg 3 times daily with improvement in blood pressure. Thoracentesis was performed in which 1.3 L of thin bloody fluid was aspirated. Once clinically stable patient was discharged home with family. Disposition: 01 HOME / SELF CARE / HOMELESS Final Discharge Diagnosis (Prints w/discharge instructions): Acute metabolic encephalopathy resolved. Lactic acidosis. Community-acquired pneumonia secondary to gram negative rods versus atypical bacteria ruled out. Chronic osteomyelitis. Stage III sacral decubitus ulcer, chronic. Left pleural effusion. ESRD on hemodialysis. NSTEMI type II. Systolic heart failure. Atrial fibrillation with RVR. Hypertension. Hypotension. Suspected COVID-19 infection ruled out. Lymphoma. Dysphagia secondary to CVA Time spent for discharge: 45 minutes Core Measure Documentation - Palliative Care Palliative Care/ Comfort Measures: Not Applicable - Core Measures Any of the following diagnoses?: heart failure, history only - Heart Failure Discharge Requirements RHONA/ARB for LVSD if EF <40%: No Reason for no RHONA/ARB: Hypotension Beta carlos at discharge: No Reason for no beta carlos on DC: Hypotension Exam - Physical Exam Narrative exam: GENERAL: Well-developed well-nourished. In no acute distress. HEENT: Edentulous NECK: Supple. CHEST/LUNGS: R chest permacath. CTAB on room air HEART/CARDIOVASCULAR: RRR. No murmur, rubs or gallops appreciated. ABDOMEN: +BS. NT/ND. SKIN: No rashes noted. NEURO: L sided hemiparesis. No other focal deficits noted. MUSCULOSKELETAL: No joint effusion EXTREMITIES: No cyanosis, clubbing or edema. PSYCH: Cooperative. - Constitutional Vitals: Temp Pulse Resp BP Pulse Ox 98.7 F 69 19 103/54 98 01/13/22 05:01/13/22 05:01/13/22 05:01/13/22 05:01/13/22 05:19 Plan Care Plan Goals: Please follow-up with the cardiology and primary care appointments made for you by [facility]. You can check the [facility] patient portal for dates and times. We will prescribe a medication for you called curly to help with your blood pressures. Please refrain from taking all blood pressure medications until you follow-up with your primary care provider. Continue to take the antibiotics as they are prescribed to you. We had our speech therapist to evaluate you and they recommended to continue feeds through the tube. You are at significant risk of aspiration and we recommend that you refrain from eating by mouth. Follow up with: BRYAN UMANA MD [Primary Care Provider] - 7 Days Prescriptions: Midodrine [Proamatine] 10 mg PO TID@0800,1200,1600 30 Days #90 tablet Levothyroxine [Synthroid] 100 mcg PO DAILY@0600 30 Days #30 tablet
[2022-01-13] MEDS: APIXABAN 2.5 MG TAB PO SCH (09:21)
[2022-01-13] MEDS: PRAVASTATIN 40 MG TAB PO SCH (09:21)
[2022-01-13] MEDS: MIDODRINE 10 MG TAB PO SCH (09:21)
[2022-01-13] MEDS: MULTIVITAMINS ,THERAPEUTIC TAB PO SCH (09:21)
[2022-01-13] MEDS: FAMOTIDINE 20 MG TAB PO SCH (09:21)
[2022-01-13] MEDS: THIAMINE 100 MG TAB PO SCH (09:21)
[2022-01-13] MEDS: ASPIRIN EC 81 MG TAB PO SCH (09:21)
[2022-01-13 09:58] VITALS: BP 110/68
[2022-01-13] MEDS ORDERED: FINASTERIDE 5 MG TAB PO SCH (10:00)
== END 2022-01-13 10:05 | disposition home or self-care (01) | DRG 70 ==
LOC: ED 16:49 → 3A 20:34
PROVIDERS: ADMIT Hospitalist; ATTEND Student in an Organized Health Care Education/Training Program
PROC: 5A1D70Z Performance of Urinary Filtration, Intermittent, Less than 6 Hours Per Day (ICD-10-PCS; 2022-01-10)
PROC: 0W9B3ZZ Drainage of Left Pleural Cavity, Percutaneous Approach (ICD-10-PCS; principal; 2022-01-12)
PROC: 5A1D70Z Performance of Urinary Filtration, Intermittent, Less than 6 Hours Per Day (ICD-10-PCS; 2022-01-12)
DX: G93.41 Metabolic encephalopathy (principal); I21.A1 Myocardial infarction type 2; L89.153 Pressure ulcer of sacral region, stage 3; N18.6 End stage renal disease; J90 Pleural effusion, not elsewhere classified; I12.0 Hypertensive chronic kidney disease with stage 5 chronic kidney disease or end stage renal disease; I69.354 Hemiplegia and hemiparesis following cerebral infarction affecting left non-dominant side; Z20.822 Contact with and (suspected) exposure to COVID-19; Z99.2 Dependence on renal dialysis; I48.0 Paroxysmal atrial fibrillation; R77.8 Other specified abnormalities of plasma proteins; I69.391 Dysphagia following cerebral infarction; R13.10 Dysphagia, unspecified; D63.1 Anemia in chronic kidney disease; I95.9 Hypotension, unspecified; Z87.891 Personal history of nicotine dependence; Z79.82 Long term (current) use of aspirin; Z82.49 Family history of ischemic heart disease and other diseases of the circulatory system
CPT/HCPCS: 32555; 36415; 70450; 71045; 80048; 80061; 80074; 81003; 82140; 82550; 82553; 82962; 83615; 83880; 84160; 84439; 84443; 84484; 85007; 85025; 87040; 88112; 88305; 93005; 93306; 94760; 96365; 96368; G0378; J3490; C8929; J0456; J0696; J1940; J2270; J3480; J7040; J7120; U0003